=== PATIENT | male | born 1975 | race Hispanic/Latino ===

== ENCOUNTER 2021-04-16 15:20 | Inpatient (IN) | payer BC, SELFPAY ==
[2021-04-16] VITALS (12 sets, daily range): BP systolic 130–198; BP diastolic 81–117; PULSE 85–106; RESP 12–21; TEMP 36–37.1; O2SAT 95–100; BMI 42.0
--- NOTE | 2021-04-16 15:24 | ECG_ITS ---
Measurements Intervals [place] Rate: 80 P: 20 [place]: 150 QRS: 30 QRSD: 102 T: 95 QT: 386 QTc: 446 Interpretive Statements SINUS RHYTHM INFERIOR ST ELEVATION MYOCARDIAL INJURY- ACUTE BASELINE ARTIFACT- I, III, AVR, AVL, AVF, V5-V6 ABNORMAL ECG Electronically Signed On 04-16-2021 16:05:11 CDT by Nitin Andrew D.O.
--- NOTE | 2021-04-16 15:35 | ED.CHESTPAIN ---
HPI - Chest Pain General Chief Complaint: Chest Pain Stated Complaint: cp Time Seen by Provider: 04/16/21 15:27 Source: patient Mode of arrival: ambulatory Limitations: no limitations History of Present Illness HPI narrative: This is a 45 year old male who presents for evaluation of midsternal chest pain. Patient developed pain approximately 45 minutes ago . He states he had just finished walking his dog and he was getting into his car when he developed pain. He denies midsternal chest pressure with associated diaphoresis and nausea. He denies previous history of chest pain or cardiac disease. He reports family history of hypertension but he is unsure of heart disease. He denies abdomi MD complaint: chest pain Related Data Allergies Allergy/AdvReac Type Severity Reaction Status Date / Time No Known Allergies Allergy Unverified 01/17/12 08:28 Review of Systems Review of Systems: All systems reviewed & are unremarkable except as noted in HPI and below PMFSH Past Medical History Medical History Obesity Unspecified place or not applicable Family History Family History Mother Hypertension Social History Social History Smoking packs per day: 0.5 Smoking cigarettes per day: 10.0 Smoking status: Current every day smoker Tobacco type: cigarettes Alcohol intake: current Substance use: current Substance use type: marijuana Exam Const: General: no acute distress and alert Orientation/consciousness: patient oriented x3 Eyes: EOM: EOMs intact bilaterally Resp: Effort & Inspection: normal respiratory effort and no retractions Auscultation: clear to auscultation bilaterally Cardio: Rate: regular rate Rhythm: regular rhythm Heart sounds: no murmurs GI: GI Palp: Yes Soft to palpation, No Tenderness to palpation present (GI) and No Guarding due to palpation present (GI) Auscultation: normal bowel sounds Neuro: General: patient oriented x3, moves all extremities and CN's II-XI intact bilaterally Psych: Mental Status: mental status grossly normal Affect: normal affect Course Reevaluation(s) Reevaluation #1: REpeat EKG shows continued ST elevation inferior. PATient given aspirin 324 mg and heparin. THey are taking him to assistant laboratory director now. Date: 04/16/21 Time: 15:35 Consultations Consultation #1: Patient 's EKG showed TONY inferior to stemi activated. Dr. Mccarthy and cath team are currently at bedside request repeat EKG. Date: 04/16/21 Time: 15:30 Vital Signs Vital signs: Vital Signs Temperature 98.2 F 04/16/21 15:22 Pulse Rate 89 04/16/21 15:22 Respiratory Rate 20 04/16/21 15:22 Blood Pressure 170/116 H 04/16/21 15:22 Pulse Oximetry 100 04/16/21 15:22 Temperature 98.2 F 04/16/21 15:22 Pulse Rate 89 04/16/21 15:22 Respiratory Rate 20 04/16/21 15:22 Blood Pressure 170/116 H 04/16/21 15:22 Pulse Oximetry 100 04/16/21 15:22 MDM - Chest Pain Lab Data Attestation: I reviewed the patient's lab results. Result diagrams: 04/16/21 15:39 04/16/21 15:39 Labs: Lab Results 04/16/21 04/16/21 04/16/21 Range/Units 15:39 15:39 15:39 WBC 11.6 H (4.5-10.0) K/mm3 RBC 5.25 (4.6-6.20) M/mm3 Hgb 16.3 (14.0-18.0) g/dL Hct 49.1 (42.0-52.0) % MCV 93.5 (80-100) fl MCH 31.0 (26-34) pg MCHC 33.2 (32-36) g/dl RDW 12.8 (11.5-14.5) % Plt Count 311 (150-375) k/mm3 MPV 10.1 (7.4-10.4) fl Immature Gran % (Auto) 0.6 H (0-0.5) % Neut % (Auto) 50.9 (45.5-73.1) % Lymph % (Auto) 36.0 (18.3-44.2) % [place] % (Auto) 10.2 H (2.6-8.5) % Eos % (Auto) 1.8 (0-4.4) % Baso % (Auto) 0.5 (0.2-1.2) % Lymph # (Auto) 4.18 H (0.9-3.2) K/mm3 [place] # (Auto) 1.2 H (0.1-0.6) K/mm3 Eos # (Auto) 0.2 (0-0.3) K/mm3 Baso # (Auto) 0.1
--- NOTE | 2021-04-16 15:37 | ECG_ITS ---
Measurements Intervals [place] Rate: 95 P: 42 [place]: 145 QRS: 29 QRSD: 97 T: 97 QT: 352 QTc: 443 Interpretive Statements SINUS RHYTHM INFERIOR ST ELEVATION MYOCARDIAL INFARCT- ACUTE BASELINE ARTIFACT- I, II, III, AVR, AVL, AVF ABNORMAL ECG Electronically Signed On 04-16-2021 16:07:01 CDT by Nitin Andrew D.O.
--- NOTE | 2021-04-16 15:41 | ECG_ITS ---
Measurements Intervals [place] Rate: 92 P: [place]: 0 QRS: -78 QRSD: 154 T: 76 QT: 401 QTc: 496 Interpretive Statements ECTOPIC ATRIAL RHYTHM ATRIAL PREMATURE COMPLEX RIGHT BUNDLE BRANCH BLOCK INFERIOR INFARCT, PROBABLY RECENT ST-T WAVE ABNORMALITY IN ANTEROLATERAL LEADS- CONSIDER ISCHEMIA BASELINE ARTIFACT- I, II, III, AVR, AVL, AVF, V1-V3 ABNORMAL ECG Electronically Signed On 04-16-2021 20:00:02 CDT by Nitin Andrew D.O.
--- NOTE | 2021-04-16 15:46 | PC.NURSE ---
Per Dr. Cosby 4 baby aspirin PO administered at [address] Chandra, 5000 units of heparin IVP administered at 1532. Per Dr. Cosby 2mg of morphine IVP administered at 1533.
[2021-04-16 15:51] LABS: Basophils Absolute Auto 0.1 K/mm3 (0.0-0.1); Basophils Percent Auto 0.5 % (0.2-1.2); Eosinophils Absolute Auto 0.2 K/mm3 (0-0.3); Eosinophils Percent Auto 1.8 % (0-4.4); Hematocrit 49.1 % (42.0-52.0); Hemoglobin 16.3 g/dL (14.0-18.0); Immature Granulocyte Absolute 0.07 K/mm3 (0.00-0.031); Immature Granulocyte Percent A 0.6 % (0-0.5); Lymphocytes Absolute Auto 4.18 K/mm3 (0.9-3.2); Mean Corpuscular HGB Conc 33.2 g/dl (32-36); Mean Corpuscular Volume 93.5 fl (80-100); Mean Platelet Volume 10.1 fl (7.4-10.4); Monocytes Absolute Auto 1.2 K/mm3 (0.1-0.6); Monocytes Percent Auto 10.2 % (2.6-8.5); Neutrophils Absolute Auto 5.9 K/mm3 (1.3-6.7); Neutrophils Percent Auto 50.9 % (45.5-73.1); Platelet Count Result 311 k/mm3 (150-375); Red Blood Count 5.25 M/mm3 (4.6-6.20); Red Cell Distribution Width 12.8 % (11.5-14.5); White Blood Count 11.6 K/mm3 (4.5-10.0)
[2021-04-16 15:58] LABS: INR 0.9; Prothrombin Time 11.6 Seconds (11.1-14.7)
[2021-04-16 15:59] LABS: Partial Thromboplastin Time 27.8 SECONDS (22.3-36.8)
--- NOTE | 2021-04-16 16:04 | PM.IMHP ---
H&P: HPI History of Present Illness Date/Time: Date of service: 04/16/21 16:04 Chief Complaint: Severe pain in my chest that started while driving to cook pickled meat my son Narrative: Patient is a very pleasant 45-year-old gentleman with no significant past history with the exception of obesity, tobacco and marijuana use whom I evaluated at bedside in the emergency department subsequent to STEMI alert from the Emergency Department. Pt reports he was in his usual state of health when approximately 45 minutes prior to presentation he experienced acute onset severe substernal chest heaviness / pressure without radiation associated with diaphoresis, nausea, and mild shortness of breath. Patient states was on his way to cook pickled meat his son from school around 2:45 p.m. when his symptoms began. He rated his pain as 10/10 down to a 7/10 after morphine 2 mg. Initial 12 lead EKG revealed subtle ST elevations in the inferior leads with reciprocal ST depressions laterally. Patient has no prior history of CAD or similar symptoms at any time. He denies exertional dyspnea, chest pain or declining exercise tolerance of late. Denies recent illnesses, sick contacts or COVID exposure. He admits to smoking cigarettes and marijuana earlier today. He denies a prior family history premature atherosclerosis or sudden cardiac . he denies bleeding, head trauma recent illnesses. Review of Systems Review of Systems: All systems reviewed & are unremarkable except as noted in HPI and below Constitutional: Constitutional: Reports as per HPI and Reports no additional constitutional complaints Eyes: Eyes: Reports as per HPI and Reports no additional eye complaints ENT: Reports system reviewed and no additional complaints, except as documented and Reports as per HPI Cardiovascular: Cardiovascular: Reports as per HPI, Reports no additional cardiovascular complaints, Reports chest pain, Reports diaphoresis, Denies leg edema, Denies lightheadedness and Denies palpitations Respiratory: Respiratory: Reports as per HPI, Reports no additional respiratory complaints, Denies hemoptysis and Reports dyspnea Gastrointestinal: Gastrointestinal: Reports as per HPI, Reports no additional gastrointestinal complaints, Denies abdominal pain, Denies melena, Denies hematochezia, Reports nausea and Denies vomiting Genitourinary: Genitourinary: Reports no additional male genitourinary complaints and Reports as per HPI Musculoskeletal: Musculoskeletal: Reports no additional musculoskeletal complaints, Reports as per HPI, Denies back pain and Denies neck pain Integumentary/Breasts: Skin/Breast: Reports system reviewed and no additional complaints, except as docu, Reports as per HPI and Denies unusual bruising Neurologic: Reports system reviewed and no additional complaints, except as documented and Reports as per HPI Psychiatric: Psychiatric: Reports no additional psychiatric complaints, Reports as per HPI and Reports anxiety Endocrine: Endocrine: Reports no additional endocrine complaints and Reports as per HPI Hematologic/Lymphatic: Hematologic/Lymphatic: Reports no additional hematologic/lymphatic complaints, Reports as per HPI, Denies easy bleeding and Denies easy bruising Allergic/Immunologic: Allergic/Immunologic: Reports no additional allergic/immunologic complaints, Reports as per HPI and Denies GI upset with certain foods PMFSH Past Medical History Medical History Obesity Unspecified place or not applicable Family History Family History Mother Hypertension Social History Social History Smoking packs per day: 0.5 Smoking cigarettes per day: 10.0 Smoking status: Current every day smoker Tobacco type: cigarettes Alcohol intake: current Substance use: current Substance use type: marijuana Meds Home Medic
[2021-04-16 16:06] LABS: Alanine Aminotransferase 60 U/L (4-50); Albumin Level 4.8 g/dL (3.5-5.1); Alkaline Phosphatase 122 U/L (38-126); Anion Gap 11 mmol/L (8-16); Aspartate Amino Transferase 37 U/L (17-59); Bilirubin,Total 0.6 mg/dL (0.2-1.3); Blood Urea Nitrogen 15 mg/dL (9-20); Calcium 9.3 mg/dL (8.4-10.2); Carbon Dioxide 29 mmol/L (22-30); Chloride 102 mmol/L (98-107); Cholesterol 264 mg/dL (0-200); Estimated CRCL calculation 94 ml/min; Estimated Glomerular Filt Rate > 60; Glucose 164 mg/dL (65-110); HDL Direct 46 mg/dL; Potassium 3.3 mmol/L (3.4-5.0); Sodium 142 mmol/L (137-145); Triglycerides 296 mg/dL (<150)
[2021-04-16 16:17] LABS: LDL Cholesterol Direct 183 mg/dL
[2021-04-16 16:18] LABS: Troponin I < 0.012 ng/mL (0.000-0.034)
--- NOTE | 2021-04-16 16:42 | WPDCARDPROC ---
Cardiac Cath Procedure Note Date of procedure:: 04/16/21 Performing physician:: Neto Koehler MD Procedure Procedure note:: CARDIAC CATHETERIZATION AND PERCUTANEOUS CORONARY INTERVENTION REPORT DATE OF PROCEDURE: 04/16/2021 INDICATION FOR PROCEDURE: Acute coronary syndrome/ inferior ST-elevation myocardial infarction BRIEF CLINICAL HISTORY: 45-year-old male with obesity, tobacco abuse; no known prior cardiac history. Patient presented to [facility] -04/16/2021 with approximately 90 minute history of chest pain associated with shortness of breath. His EKG showed sinus rhythm, ST-elevation in the inferior leads. Cardiac catheterization lab was activated for primary PCI. Patient received aspirin, and a bolus of 5000 units of heparin prior to arrival to the photonic laboratory technician. PROCEDURES PERFORMED: 1. Emergent left heart catheterization- Selective left and right coronary angiogram; left ventriculogram and hemodynamic assessment 2. Primary Percutaneous coronary intervention- balloon angioplasty and stenting of totally occluded mid right coronary artery using a 4.5 x 26 mm Medtronic resolute beto Zotarolimus drug-eluting stent (ZES) with denominational of flow. 3. Selective right common femoral angiogram 4. Moderate sedation-CPT code 22510 MODERATE SEDATION: Midazolam 1 mg; fentanyl 25 mcg. Start time 1603 , Stop time 1634 ; Total [id number] time 31 minutes; Dk Lewis RN was trained observer for moderate sedation. ACCESS SITE: Right common femoral artery PROCEDURE NOTE: Patient was emergently brought to catheterization lab and prepped and draped in a usual sterile manner. After local anesthesia with lidocaine, right common femoral artery access was taken with micropuncture needle followed by insertion of a 6 [place] sheath. Selective left and right coronary angiogram was performed using 5 [place] JL4 diagnostic and JR4 guide catheters respectively. Orthogonal views were taken. After completion of PCI, a 5 [place] pigtail catheter was advanced in the LV cavity and was flushed with normal saline. LV pressure measurement was performed. After this, left ventriculogram was performed. The catheter was flushed again, and gradient across the aortic valve was measured on the pullback of the catheter. The angiographic findings and details of PCI I are discussed below. FINDINGS: LEFT MAIN CORONARY: The left main coronary artery is a large caliber, very short vessel, no angiographic significant focal stenosis seen. The vessel bifurcates into tortuous LAD left circumflex branch. There was somewhat selective engagement of the LCX during left coronary angiogram. LEFT ANTERIOR DESCENDING ARTERY: The LAD is a medium to large caliber vessel in the proximal segment, medium caliber in the mid segment, and tapers distally. The vessel tortuous without significant focal stenosis in the LAD or its medium-sized diagonal branch. LEFT CIRCUMFLEX ARTERY: the left circumflex artery is a large caliber, very tortuous vessel, gives rise to very tortuous large caliber OM1 branch and medium caliber OM2 branch without significant focal stenosis. RIGHT CORONARY ARTERY: RCA is a large caliber, very tortuous, dominant vessel. 100% thrombotic occlusion is seen in the mid segment -infarct related vessel. There is mild 20-30% eccentric stenosis in the proximal segment. After denominational of flow, angiogram shows medium size PDA and the PLV branches , without significant focal stenosis. LEFT VENTRICULOGRAM: Preserved overall LV systolic function, ejection fraction more than 70%. Ventricular ectopy was seen during left ventriculogram. LVEDP elevated at 24 mmHg. HEMODYNAMIC ASSESSMENT: Opening pressure 161/122 mmHg , closing pressure 146/87 mmHg , LVEDP 24 mmHg; no significant gradient across aortic valve on the pullback of pigtail catheter. RIGHT COMMON FEMORAL ARTERY: Patent INTERVENTION REPORT: coronary angiogram showed 100% thrombotic occlusion in the
--- NOTE | 2021-04-16 17:46 | ADMGEN ---
This patient, Joseph Marie, was admitted to Intensive Care Unit-3. Patient/family oriented to hospital policies and general routines including ID bracelet, bed and alarms, visiting hours, pain management, procedures, bathroom and other care routines, personal items, smoking policy, room service/diet, and visiting hours. Information on how to activate the Rapid Response Team has been discussed. Patient/Family are encouraged to report perceived risks to care and to ask questions if they do not understand what they are told or what they should do.
[2021-04-16] MEDS: SODIUM CHLORIDE 0.9% IV 1,000 ML 125 ML IV CONT (17:48)
[2021-04-16] MEDS: hydrALAZINE HCL 20 MG/ML VIAL 10 MG IV PUSH (18:31)
[2021-04-16] MEDS: LOSARTAN POTASSIUM 25 MG TABLET PO (19:56)
[2021-04-16] MEDS: ATORVASTATIN 40 MG TABLET 80 MG PO (19:56)
[2021-04-16] MEDS: ONDANSETRON INJ 4 MG/2 ML VIAL IV PUSH (21:25)
[2021-04-16] MEDS: METOPROLOL TARTRATE 25 MG TABLET PO (22:27)
[2021-04-16] MEDS: TICAGRELOR 90 MG TABLET PO (22:27)
[2021-04-16] MEDS: LABETALOL HCL INJ 100 MG/20 ML VIAL 20 MG IV PUSH (23:34)
[2021-04-17] VITALS (12 sets, daily range): BP systolic 140–165; BP diastolic 72–104; PULSE 71–109; RESP 16–20; TEMP 36.8–37.1; O2SAT 94–99
--- NOTE | 2021-04-17 | ECHO_ITS ---
Patient Info Name: Joseph Marie Age: 45 years : 1975 Gender: Male Ht: 70 in Wt: 294 lbs BSA: 2.63 m2 HR: 78 bpm BP: 147 / 103 mmHg Heart Rhythm: Sinus Rhythm Technical Quality: Fair Exam Date: 04/17/2021 2:02 PM Exam Location: [facility] Patient Status: Inpatient Admit Date: 04/16/2021 Staff Ordering Physician: Dean Cota MD Car Filler: Paula Quesada RDCS Attending Provider: eNto Koehler MD Exam Type: CA echo doppler color flow Study Info Indications - STEMI Complete two-dimensional, color flow and Doppler transthoracic echocardiogram is performed. Summary 1. Technically difficult study with limited views. Regional wall motion assessment limited due to poor endomyocardial border definition in several views. 2. Left ventricular chamber dimension is mildly enlarged. 3. Left ventricular systolic function is normal, estimated at 60-65%. 4. There is moderately increased left ventricular wall thickness. 5. There is trace tricuspid valve regurgitation. 6. Unable to estimate PA systolic pressure due to poor spectral resolution of tricuspid regurgitant jet velocity. IVC not well visualized. 7. The aortic root size at the sinus of Valsalva is mildly dilated at 4.[address] chest if clinically indicated. 8. Possible moderate to large localized pericardial effusion posteriorly located without tamponade physiology. Left Ventricle Left ventricular chamber dimension is mildly enlarged. Left ventricular systolic function is normal, estimated at 60-65%. There is moderately increased left ventricular wall thickness. The left ventricular diastolic function is grade I diastolic dysfunction. Right Ventricle Right ventricular chamber dimension is normal. Right ventricular systolic function is normal. Left Atria Left atrial chamber dimension is normal. Right Atria Right atrial chamber dimension is normal. Aortic Valve The aortic valve is not well visualized. There is no aortic valve stenosis. There is no aortic valve regurgitation. Pulmonic Valve The pulmonic valve is not well visualized. Mitral Valve The mitral valve has normal leaflets. There is trace mitral valve regurgitation. Tricuspid Valve The tricuspid valve leaflets are not well visualized. There is trace tricuspid valve regurgitation. Unable to estimate PA systolic pressure due to poor spectral resolution of tricuspid regurgitant jet velocity. IVC not well visualized. Pericardium/Pleural The pericardium appears epicardial fat pad. Possible moderate to large localized pericardial effusion posteriorly located without tamponade physiology. Aorta The aortic root size at the sinus of Valsalva is mildly dilated at 4.[address] chest if clinically indicated. Left Ventricular Outflow Tract Name Value Normal LVOT 2D LVOT Diameter 2.0 cm LVOT Doppler LVOT Peak Gradient 4 mmHg LVOT Mean Gradient 2 mmHg LVOT VTI 19 cm LVOT VTI/AV VTI Ratio 1.0 LVOT Stroke Volume 61 ml
--- NOTE | 2021-04-17 00:56 | ECG_ITS ---
Measurements Intervals [place] Rate: 84 P: 55 [place]: 148 QRS: -19 QRSD: 86 T: 5 QT: 369 QTc: 438 Interpretive Statements SINUS RHYTHM WITH SINUS ARRHYTHMIA DELAYED PRECORDIAL R/S TRANSITION INFERIOR INFARCT, AGE INDETERMINATE BASELINE ARTIFACT- V3 ABNORMAL ECG Electronically Signed On 04-17-2021 8:58:31 CDT by Nitin Andrew D.O.
[2021-04-17] MEDS: carvediloL 12.5 MG TABLET PO ×3 (01:37→20:15)
[2021-04-17] MEDS: hydrALAZINE HCL 20 MG/ML VIAL 10 MG IV PUSH (03:05)
[2021-04-17] MEDS: ONDANSETRON INJ 4 MG/2 ML VIAL IV PUSH ×3 (03:54→12:42)
[2021-04-17 07:49] LABS: Hemoglobin 15.2 g/dL (14.0-18.0); Mean Corpuscular HGB Conc 34.5 g/dl (32-36); Mean Corpuscular Hemoglobin 31.1 pg (26-34); Mean Platelet Volume 10.1 fl (7.4-10.4); Platelet Count Result 303 k/mm3 (150-375); Red Blood Count 4.89 M/mm3 (4.6-6.20); Red Cell Distribution Width 12.7 % (11.5-14.5); White Blood Count 15.3 K/mm3 (4.5-10.0)
[2021-04-17] MEDS: ASPIRIN 81 MG ENTERIC TABLET PO (08:00)
[2021-04-17] MEDS: TICAGRELOR 90 MG TABLET PO ×2 (08:00→20:15)
[2021-04-17] MEDS: LOSARTAN POTASSIUM 25 MG TABLET PO (08:00)
[2021-04-17 08:17] LABS: Anion Gap 7 mmol/L (8-16); Blood Urea Nitrogen 12 mg/dL (9-20); Calcium 9.3 mg/dL (8.4-10.2); Carbon Dioxide 28 mmol/L (22-30); Chloride 100 mmol/L (98-107); Estimated CRCL calculation 116 ml/min; Estimated Glomerular Filt Rate > 60; Glucose 167 mg/dL (65-110); Potassium 4.2 mmol/L (3.4-5.0); Sodium 135 mmol/L (137-145)
[2021-04-17] MEDS: HYDROcodone/acetaminophen (*CRX) 5-325 MG TABLET 1 TAB PO (09:03)
--- NOTE | 2021-04-17 09:48 | WPDCNINT ---
Assessment and Plan Assessment and plan (1) STEMI (ST elevation myocardial infarction): Code(s): I21.3 - ST elevation (STEMI) myocardial infarction of unspecified site Status: Acute Assessment and Plan: Inferior ST segment elevation [place] status post PCI balloon angioplasty and stenting of totally occluded mid right coronary artery using a 4.5 x 26 mm Medtronic resolute beto Zotarolimus drug-eluting stent (ZES) with nondenominational of flow. Continue telemetry monitoring Continue aspirin, Lipitor, Coreg, losartan and Brilinta EKG done this morning reviewed Echocardiogram ordered and pending (2) HTN (hypertension): Code(s): I10 - Essential (primary) hypertension Status: Acute Assessment and Plan: Patient does not have documented history of hypertension but his blood pressure is elevated He has been started on Coreg and losartan Will up titrate depending on response (3) Tobacco abuse: Code(s): Z72.0 - Tobacco use Status: Acute Assessment and Plan: I counseled and encouraged patient to quit smoking (4) Obstructive sleep apnea: Code(s): G47.33 - Obstructive sleep apnea (adult) (pediatric) Status: Acute Assessment and Plan: I suspect patient has sleep apnea from his history and I encouraged him to seek sleep study testing as an outpatient (5) Nausea: Code(s): R11.0 - Nausea Status: Acute Assessment and Plan: P.r.n. Zofran (6) Neck pain: Code(s): M54.2 - Cervicalgia Status: Acute Assessment and Plan: Chronic musculoskeletal P.r.n. [place] Additional Plan DVT prophylaxis -SCDs while in bed. 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 Patient developed pain approximately 45 minutes prior to presentation, it was midsternal in location and was as stated with sweating and nausea. No radiation, 10/10 severity, no aggravating or relieving factors until he reached hospital and had PCI procedure done. In ED patient was diagnosed with ST segment elevation MO and Cardiology was consulted. Patient underwent PCI and stent placement of his RCA. Procedure patient was admitted to ICU for further evaluation and monitoring At this time patient denies any chest pain shortness of breath or cough. He states that he does have some nausea off and on but no vomiting. He does feel that he would like to eat food this morning. He denies any other complaint at this time. Review of systems is positive for neck pain which is chronic and is worse at this time as per patient due to laying in bed in flat position.. He also states that he has difficulty breathing when he lays flat on his back and often wakes up gasping for air. He also admits to snoring. All other systems were reviewed and were negative Review of Systems Review of Systems: All systems reviewed & are unremarkable except as noted in HPI and below (HPI) [facility] Past Medical History Medical History Obesity Unspecified place or not applicable Family History Family History Mother Hypertension Social History Social History Smoking packs per day: 0.5 Smoking cigarettes per day: 10.0 Smoking status: Never smoker Tobacco type: cigarettes Alcohol intake: never Substance use: current Substance use type: marijuana Spiritual care concerns: No Meds Home Medications and Allergies Home Medications
--- NOTE | 2021-04-17 11:18 | PM.PNCARD ---
Progress Note: A&P Assessment and Plan (1) STEMI (ST elevation myocardial infarction): Code(s): I21.3 - ST elevation (STEMI) myocardial infarction of unspecified site Status: Acute Assessment and Plan: -Acute inferior ST-elevation IA with reciprocal ST depressions persistent chest pain consistent with ACS/ STEMI. -Emergent coronary angiography with total occlusion mid RCA status post 4.5 x 26 mm Medtronic resolute beto Zotarolimus drug-eluting stent (ZES) - continue ASA 81 mg and Brilinta 90 mg b.i.d. without interruption. Monitor for bleeding. - DVT prophylaxis. Lipid panel LDL 183. Atorvastatin 80 mg daily will be initiated. (2) HTN (hypertension): Code(s): I10 - Essential (primary) hypertension Status: Acute Assessment and Plan: No prior diagnosis yet suspect to be more chronic issue. Very elevated overnight, currently improved with medical therapy, but remains elevated. Suspect N/V related to med therapy post angiography. Increase losartan to 50 mg daily if BP poorly controlled. 2D echocardiogram pending. (3) NSVT (nonsustained ventricular tachycardia): Code(s): I47.2 - Ventricular tachycardia Status: Acute Assessment and Plan: Two 7 beat runs of nonsustained VT within 1st 24 hours post IA noted, marketing director assisted living hours today without significant recurrence. Occasional PVCs. Continue carvedilol and telemetry. (4) Dyslipidemia: Code(s): E78.5 - Hyperlipidemia, unspecified Status: Acute Assessment and Plan: LDL quite elevated 183, goal less than 70. Atorvastatin 80 mg at bedtime. (5) Tobacco abuse: Code(s): Z72.0 - Tobacco use Status: Acute Assessment and Plan: Immediate and absolute smoking cessation counseling performed. Patient must remain abstinent immediately for marijuana use. Counseled extensively in this regard. Patient verbalized understanding and states he understands the importance and will do so. (6) Obesity: Code(s): E66.9 - Obesity, unspecified Status: Acute Assessment and Plan: Lifestyle modification counseling. Discussed at length. Patient very interested in making multiple changes in his life to reduce risk moving forward. Subjective Date/time seen: Date of service: 04/17/21 11:18 Follow-up for inferior ST-elevation IA status post emergent angiography BP quite elevated overnight, Received IV hydralazine, losartan and carvedilol added. no chest pain or shortness of breath. Patient states he feels fine with the exception of nausea and emesis this morning. He received Zofran which has helped some. he complains of neck and back pain which is chronic lying in the bed improved sitting up. Review of Systems Review of Systems: All systems reviewed & are unremarkable except as noted in HPI and below Constitutional: Constitutional: Reports as per HPI and Reports no additional constitutional complaints Eyes: Eyes: Reports as per HPI and Reports no additional eye complaints ENT: Reports system reviewed and no additional complaints, except as documented, Reports as per HPI and Denies neck pain Cardiovascular: Cardiovascular: Reports as per HPI, Reports no additional cardiovascular complaints, Denies chest pain, Denies diaphoresis, Denies leg edema, Denies lightheadedness, Denies palpitations and Reports dyspnea Respiratory: Respiratory: Reports as per HPI, Reports no additional respiratory complaints, Denies hemoptysis and Denies dyspnea Gastrointestinal: Gastrointestinal: Reports as per HPI, Reports no additional gastrointestinal complaints, Denies abdominal pain, Denies melena, Denies hematochezia, Reports nausea and Reports vomiting Genitourinary: Genitourinary: Reports no additional male genitourinary complaints and Reports as per HPI Musculoskeletal: Musculoskeletal: Reports no additional musculoskeletal complaints, Reports as per HPI, Denies back pain and Denies ne
--- NOTE | 2021-04-17 16:06 | PC.NURSE ---
Patient transferred to [facility], report given to Flory FREDERICK
--- NOTE | 2021-04-17 16:31 | ADMGEN ---
This patient, Joseph Marie, was admitted to [facility]. Patientnoriented to hospital policies and general routines including ID bracelet, bed and alarms, visiting hours, pain management, procedures, bathroom and other care routines, personal items, smoking policy, room service/diet, and visiting hours. Information on how to activate the Rapid Response Team has been discussed. Patient is encouraged to report perceived risks to care and to ask questions if they do not understand what they are told or what they should do.
[2021-04-17] MEDS: ATORVASTATIN 40 MG TABLET 80 MG PO (20:15)
--- NOTE | 2021-04-17 22:08 | PC.NURSE ---
Patient report received from OTONIEL Fragoso and care of patient assumed. All questions answered.
--- NOTE | 2021-04-17 22:34 | PC.NURSE ---
Patient appears to be sleeping at this time. Eyes closed with regular, non-labored breathing. NAD noted. NSR on the monitor. Call-light within reach. Will continue to monitor.
[2021-04-18] VITALS (9 sets, daily range): BP systolic 132–146; BP diastolic 85–101; PULSE 83–106; RESP 14–20; TEMP 35.9–36.6; O2SAT 96–98
--- NOTE | 2021-04-18 03:29 | PC.NURSE ---
Patient resting quietly in bed with eyes closed. Appears to be asleep. Respirations regular and non-labored. VSS. Call-light within reach. Will continue to monitor.
--- NOTE | 2021-04-18 06:30 | PC.NURSE ---
Pt resting comfortably in bed. Appears to be asleep. Eyes closed and respirations regular and non-labored. VSS. call-light within reach.
--- NOTE | 2021-04-18 07:20 | PC.NURSE ---
Patient report given to OTONIEL Wills. All questions answered and care of patient transferred.
[2021-04-18] MEDS: ASPIRIN 81 MG ENTERIC TABLET PO (09:41)
[2021-04-18] MEDS: TICAGRELOR 90 MG TABLET PO (09:42)
[2021-04-18] MEDS: LOSARTAN POTASSIUM 25 MG TABLET PO (09:42)
[2021-04-18] MEDS: carvediloL 12.5 MG TABLET PO (09:42)
--- NOTE | 2021-04-18 11:20 | PC.NURSE ---
SYED CHEUNG LINE MAINTAINER HERE TO SEE PT.
--- NOTE | 2021-04-18 11:29 | PM.DS ---
DS: Admitting Diagnosis Discharge Date 04/18/2021 Admitting Diagnosis chest pain DS: Discharge Diagnosis Discharge Diagnosis (1) STEMI (ST elevation myocardial infarction): Code(s): I21.3 - ST elevation (STEMI) myocardial infarction of unspecified site Status: Acute Assessment and Plan: - Acute inferior ST-elevation ID with reciprocal ST depressions persistent chest pain consistent with ACS/ STEMI. - Emergent coronary angiography with total occlusion mid RCA status post 4.5 x 26 mm Medtronic resolute beto Zotarolimus drug-eluting stent (ZES) - continue ASA 81 mg and Brilinta 90 mg b.i.d. without interruption. Monitor for bleeding - Lipid panel LDL 183. On Atorvastatin 80 mg daily. (2) HTN (hypertension): Code(s): I10 - Essential (primary) hypertension Status: Acute Assessment and Plan: No prior diagnosis yet suspect to be more chronic issue. Reasonably controlled today. Continue losartan, carvedilol. (3) NSVT (nonsustained ventricular tachycardia): Code(s): I47.2 - Ventricular tachycardia Status: Acute Assessment and Plan: Two 7 beat runs of nonsustained VT within 1st 24 hours post ID noted, digital imager hours today without significant recurrence. Occasional PVCs. No VT noted on telemetry overnight or this morning. Currently in sinus rhythm. (4) Dyslipidemia: Code(s): E78.5 - Hyperlipidemia, unspecified Status: Acute Assessment and Plan: LDL quite elevated 183, goal less than 70. Atorvastatin 80 mg at bedtime. (5) Tobacco abuse: Code(s): Z72.0 - Tobacco use Status: Acute Assessment and Plan: Immediate and absolute smoking cessation counseling performed. Reviewed importance of abstaining from all tobacco products. Patient expresses that he is very committed to maintaining abstinence from smoking at this time. (6) Obesity: Code(s): E66.9 - Obesity, unspecified Status: Acute Assessment and Plan: Lifestyle modification counseling. Discussed specifics of heart healthy diet. Discussed goals for aerobic exercise. DS: Summary Hospital Course Hospital Course: Patient presented to the emergency department with complaints of severe substernal chest heaviness, diaphoresis, nausea, mild shortness of breath. Initial 12 lead EKG revealed subtle ST elevations in the inferior leads with reciprocal ST depressions laterally. Patient was taken emergently to the cardiac catheterization lab where he was found to have 100% thrombotic occlusion in the mid RCA. This lesion was addressed with balloon angioplasty and placement of an beto XES. These interventions produced a good angiographic result. He did not have any other significant obstructive disease in the left coronary system. Overall LV systolic function was preserved with an EF more than 70%. He was initiated on dual anti-platelet therapy with aspirin and Brilinta. He was also initiated on beta-samuel therapy, high-intensity statin, losartan. He did not experience any significant postprocedural complications and is stable and appropriate for discharge home today. Time spent discussing smoking cessation with patient: 3 to 10 minutes Status at Discharge Functional status at discharge: independent ambulation Time Spent with Patient Time attestation: Total time spent providing and/or coordinating discharge services: 39 minutes Time spent: Greater than 30 minutes Exam Const: General: comfortable and no acute distress HENMT: Head: normal to inspection Eyes: General: appearance normal, both eyes and all related structures Pupils: Equal, round and reactive pupils present Neck: Neck: supple and no JVD Resp: Effort & Inspection: normal respiratory effort Auscultation: clear to auscultation bilaterally and diminished lung sounds (Bases) bilateral Cardio: Rate: regular rate Rhythm: regular rhythm Heart sounds: no murmurs GI: GI Palp: Yes Soft to palpation
--- NOTE | 2021-04-18 16:20 | PC.NURSE ---
DISCHARGE INSTRUCTIONS HAVE BEEN GIVEN AND REVIEWED W/ PT. ALL QUESTIONS ANSWERED. VOICED UNDERSTANDING OF ALL. R. GROIN SITE BANDAID C/D/I. NO CHANGE IN SITE. R. PEDAL PULSE STRONG. SENSATION AND MOVEMENT R. FOOT WNL. DISCHARGED HOME, OUT VIA WC TO FAMILY'S WAITING CAR, WITH ALL PERSONAL BELONGINGS, DISCHARGE PACKET, STENT CARD. STEADY GAIT. VOICES NO C/O. NO DISTRESS NOTED.
== END 2021-04-18 16:20 | disposition home or self-care (01) | DRG 174 ==
LOC: ANHED 15:37 → ANHICU 17:37 → ANHCPC 04-18 11:29 → ANHICU 04-23 13:18
PROVIDERS: Internal Medicine Cardiovascular Disease; Admitting Provider Internal Medicine Cardiovascular Disease; Emergency Provider General Practice; Visit Provider Specialist
PROC: 4A023N7 Measurement of Cardiac Sampling and Pressure, Left Heart, Percutaneous Approach (ICD-10-PCS; CPT 93452; principal; 2021-04-16 15:40)
PROC: 027034Z Dilation of Coronary Artery, One Artery with Drug-eluting Intraluminal Device, Percutaneous Approach (ICD-10-PCS; 2021-04-16 15:40)
PROC: 027034Z Dilation of Coronary Artery, One Artery with Drug-eluting Intraluminal Device, Percutaneous Approach (ICD-10-PCS; 2021-04-16 15:40)
DX: I21.3 ST elevation (STEMI) myocardial infarction of unspecified site (principal); I47.2 Ventricular tachycardia; I10 Essential (primary) hypertension; E78.5 Hyperlipidemia, unspecified; F17.210 Nicotine dependence, cigarettes, uncomplicated; E66.9 Obesity, unspecified; Z68.41 Body mass index [BMI] 40.0-44.9, adult; G47.33 Obstructive sleep apnea (adult) (pediatric)
CPT/HCPCS: 36415; 80048; 80053; 80061; 84484; 85025; 85027; 85610; 85730; 86850; 86900; 86901; 93005; 93306; 93458; 99285; A9270; C1725; C1760; C1769; C1874; C1887; C1894; C9606; G0269; J0360; J0583; J1644; J2250; J2270; J2405; J3010; J7030; J7040

== ENCOUNTER 2021-06-09 10:33 | Outpatient (CLI) | payer BC, SELFPAY ==
[2021-06-09 11:16] LABS: Alanine Aminotransferase 81 U/L (4-50); Albumin Level 4.8 g/dL (3.5-5.1); Alkaline Phosphatase 134 U/L (38-126); Anion Gap 9 mmol/L (8-16); Aspartate Amino Transferase 49 U/L (17-59); Blood Urea Nitrogen 16 mg/dL (9-20); Calcium 9.9 mg/dL (8.4-10.2); Carbon Dioxide 28 mmol/L (22-30); Chloride 102 mmol/L (98-107); Cholesterol 115 mg/dL (0-200); Estimated Glomerular Filt Rate > 60; Glucose 108 mg/dL (65-110); HDL Direct 36 mg/dL; Potassium 4.3 mmol/L (3.4-5.0); Sodium 139 mmol/L (137-145); Triglycerides 125 mg/dL (<150)
[2021-06-09 11:26] LABS: Hemoglobin A1C 5.6 % (<5.7)
[2021-06-09 11:28] LABS: LDL Cholesterol Direct 49 mg/dL
[2021-06-09 11:34] LABS: Vitamin D 25 Hydroxy 26.7 ng/mL
[2021-06-09 11:48] LABS: Prostate Specific Antigen 0.3 ng/mL (< OR = 4.0)
[2021-06-09 11:58] LABS: Microalbumin Urine Random 28.7 mg/L (0-16.7)
[2021-06-09 12:26] LABS: Creatinine Urine 365.7 mg/dL; MALB Creatinine Ratio 7.8 mg/g (0-30)
== END 2021-06-09 10:34 | disposition home or self-care (01) ==
LOC: ANHLAB 10:35
PROVIDERS: PCP Internal Medicine; Visit Provider Internal Medicine
DX: E55.9 Vitamin D deficiency, unspecified (principal); E66.01 Morbid (severe) obesity due to excess calories; I10 Essential (primary) hypertension; Z68.41 Body mass index [BMI] 40.0-44.9, adult; R73.01 Impaired fasting glucose; E78.2 Mixed hyperlipidemia; Z12.5 Encounter for screening for malignant neoplasm of prostate
CPT/HCPCS: 36415; 80053; 80061; 82043; 82306; 83036; 84153; 84443; G0103

== ENCOUNTER 2021-07-21 11:00 | Outpatient (RCR) | payer BC, SELFPAY ==
--- NOTE | 2021-06-18 11:27 | PCCPR ---
absent-kid is sick and has to take him to the doctor.
--- NOTE | 2021-06-26 08:29 | PCCPR ---
Absence: Joseph called and said that he had a sore throat, so he did not think that it would be a good idea to come in. He is going to call his doctor today.
--- NOTE | 2021-07-02 15:02 | PCCPR ---
Addendum entered by Anila Young RN 07/21/21 07:52: SANDOVAL for Joseph explained we need to hear from him today or will need to dc him. We have left several messages and he has not responded. Original Note: Absent the past 2 sessions due to illness. Hopes to return tomorrow ().
== END 2021-07-21 18:27 | disposition home or self-care (01) ==
LOC: ANHCPREHAB 11:00
PROVIDERS: PCP Internal Medicine; Visit Provider Nurse Practitioner
DX: Z95.5 Presence of coronary angioplasty implant and graft (principal); I25.2 Old myocardial infarction
CPT/HCPCS: 93798

== ENCOUNTER 2022-01-14 12:03 | Inpatient (IN) | payer BC, SELFPAY ==
[2022-01-14] VITALS (21 sets, daily range): BP systolic 116–162; BP diastolic 75–121; PULSE 74–95; RESP 12–25; TEMP 36.5–36.8; O2SAT 96–100; BMI 38.4
--- NOTE | ~2022-01-14 | CT_ITS ---
EXAMINATION: CT brain wo con INDICATION: Numbness, hypertension COMPARISON: None TECHNIQUE: Standard unenhanced head CT. The dose-length product (DLP) was 605.33 mGy-cm. The mA was a djusted according to patient size. Iterative reconstruction technique was employed. FINDINGS: There is no intracranial hemorrhage, acute infarction, or abnormal mass lesion. The ventric les are normal. There is no abnormal mass effect or midline shift. The moulton-white matter differentiat ion is normal. The basal cisterns are patent. The orbits are normal. The paranasal sinuses, mastoids and calvarium are normal. IMPRESSION: 1. No acute intracranial abnormality. Reviewed, dictated and finalized at location A.
--- NOTE | ~2022-01-14 | US_ITS ---
EXAMINATION: US abdomen limited DATE: 01/18/2022 10:08 INDICATION: Elevated LFTs. TECHNIQUE: Multiple grayscale and Doppler ultrasound images of limited portions of the abdomen were o btained. COMPARISON: CT 01/17/2012. FINDINGS: Pancreas is obscured. Borderline enlargement of the liver, with diffuse echogenicity of the liver parenchyma. No surface nodularity. Normal hepatopetal flow in the main portal vein. Bladder wa ll thickening to 5 mm. 8 mm gallbladder polyp. The normal common bile duct measures 5 mm. There was n o sonographic Negron sign. IMPRESSION: 1. Increased liver echogenicity as can be seen with steatosis, fibrosis, or hepatitis. 2. Gallbladder wall thickening, nonspecific in the setting of chronic liver disease. 3. 8 mm gallbladder polyp, recommend: Bilateral ultrasound follow-up in 1 year to evaluate for interv al growth. Reviewed, dictated and finalized at location K. IMPRESSION: 1. Increased liver echogenicity as can be seen with steatosis, fibrosis, or hep atitis. 2. Gallbladder wall thickening, nonspecific in the setting of chronic liver dis ease. 3. 8 mm gallbladder polyp, recommend: Bilateral ultrasound follow-up in 1 year to evaluate for interval growth.
--- NOTE | ~2022-01-14 | CT_ITS ---
EXAMINATION: CT lumbar spine wo con DATE: 01/14/2022 13:08 INDICATION: Lower extremity weakness. TECHNIQUE: Computed tomography (CT) of the lumbar spine was performed without intravenous contrast. A utomated exposure control and iterative reconstruction technique were employed. The dose-length produ ct was 1414.67 mGy-cm. COMPARISON: None FINDINGS: There is a 4 mm stone in left kidney. Bone alignment is normal.. There is mild chronic ante rior wedging of T11-L1 vertebral bodies. Intervertebral disc heights are normal. The following disc l evels are specifically discussed: L1-L2: The disc does not extend beyond the endplate margin. There is mild bilateral facet joint osteo arthritis. There is no neural foraminal stenosis. There is no central canal stenosis. L2-L3: The disc does not extend beyond the endplate margin. There is mild bilateral facet joint osteo arthritis. There is no neural foraminal stenosis. There is no central canal stenosis. L3-L4: The disc does not extend beyond the endplate margin. There is mild bilateral facet joint osteo arthritis. There is no neural foraminal stenosis. There is no central canal stenosis. L4-L5: The disc is bulging. There is mild bilateral facet joint osteoarthritis. There is mild left ne ural foraminal stenosis. There is no central canal stenosis. L5-S1: There is a central protrusion. There is mild bilateral facet joint osteoarthritis. There is no neural foraminal stenosis. There is mild central canal stenosis. IMPRESSION: 1. Mild lumbar spondylosis. Reviewed, dictated and finalized at location A. IMPRESSION: 1. Mild lumbar spondylosis.
--- NOTE | ~2022-01-14 | XR_ITS ---
EXAMINATION: XR chest 1V portable INDICATION: Weakness TECHNIQUE: Portable AP chest at 1233 hours COMPARISON: None available FINDINGS: The lungs are free of acute opacities. There is no pleural effusion or pneumothorax. The ca rdiomediastinal silhouette is normal. IMPRESSION: 1. No acute cardiopulmonary abnormality. Reviewed, dictated and finalized at location A.
--- NOTE | 2022-01-14 12:13 | ECG_ITS ---
Measurements Intervals [place] Rate: 85 P: 1 NM: 148 QRS: -12 QRSD: 79 T: 12 QT: 351 QTc: 419 Interpretive Statements SINUS RHYTHM LOW-VOLTAGE QRS IN LIMB LEADS CANNOT RULE OUT INFERIOR INFARCT, AGE INDETERMINATE ABNORMAL ECG COMPARED TO ECG 04/17/2021 00:55:06 NO SIGNIFICANT CHANGES Electronically Signed On 01-14-2022 16:45:32 CDT by Ludwin Mccarthy M.D.
--- NOTE | 2022-01-14 12:15 | ED.WEAKNESS ---
HPI - Weakness General Chief complaint: Weakness Stated complaint: b/l weakness Time Seen by Provider: 01/14/22 12:04 Source: RN notes reviewed History of Present Illness HPI Narrative: Patient presents emergency department from home for leg weakness. Patient states he was walking to the [facility] when suddenly his bilateral legs became more weak and he fell he states that that happened approximately 20 minutes prior to arrival states he sustained no injury from the fall other than a mild abrasion over his right knee states that following the fall he has continued to have feelings of weakness in his bilateral legs like his muscles are weak he states a little worse on the right than the left but both are weak he denies any numbness or tingling he denies any feelings of dizziness, vision changes, chest pain, shortness of breath, abdominal pain nausea vomiting or any other symptoms. Patient states that he has been having weakness in his legs over the past 2 weeks that has gradually gotten worse he states that this is the first time that he has fallen Related Data Allergies Allergy/AdvReac Type Severity Reaction Status Date / Time No Known Allergies Allergy Verified 09/25/21 13:50 Review of Systems Review of Systems: Gen.: Denies fevers or chills Eyes: Denies eye pain or visual change ENT: Denies congestion Respiratory: Denies shortness of breath or cough CV: Denies chest pain or palpitations GI: Denies abdominal pain nausea, emesis or diarrhea Musculoskeletal: Denies back pain or muscle pain Neuro: Denies numbness, tingling, weakness or focal weakness Skin: Denies rash Except as documented, all other systems reviewed and negative [facility] Past Medical History Medical History Obesity Unspecified place or not applicable Family History Family History Mother Hypertension Social History Social History Smoking packs per day: 1 Smoking cigarettes per day: 20.0 Years smoked: 26 Smoking pack-years: 26.00 Smoking status: Former smoker Tobacco type: cigarettes Smoking end date: 04/16/21 Alcohol intake: never Substance use: former Substance use type: marijuana Last use: Spiritual care concerns: No Exam Narrative: APPEARANCE: No acute distress, nontoxic, resting in bed HEENT: Normocephalic, atraumatic, OMM, TMs clear bilaterally EYES: PERRL, EOMI NECK: Supple, nontender, full range of motion without pain, no meningismus RESPIRATORY: No respiratory distress, clear to auscultation bilaterally with no rhonchi wheezing or rales CARDIOVASCULAR: RRR s murmur ABDOMINAL: Soft, nontender, nondistended MUSCULOSKELETAL: Moves all extremities. No clubbing, cyanosis or edema. NEURO: A and O ?3, following commands, speech normal, cranial nerves II through XII grossly intact, muscle strength 5 out of 5 in bilateral upper extremities, muscle strength 3 out of 5 in the right lower extremity and 4 out of 5 in the left lower extremity, no pronator drift equal pinprick sensation in the bilateral lower extremities SKIN:: Warm, dry. Normal Color PSYCHIATRIC: Normal affect/mood Course Course Emergency Course: Discussed with patient he is on atorvastatin which she has been on for sometimes he denies any new exercise routine he denies any regular alcohol use Discussed with Dr. Paniagua who accepts admission Discussed with patient and family results of workup and diagnosis. Discussed need for admission. Patient and family understand and agree to current treatment plan Vital Signs Vital signs: Vital Signs Temperature 98.3 F 01/14/22 12:06 Pulse Rate 95 01/14/22 12:06 Respiratory Rate 16 01/14/22 12:06 Blood Pressure 162/121 H 01/14/22 12:06 Pulse Oximetry 98 01/14/22 12:06 Temperature 98.3 F 01/14/22 12:06 Pulse Rate 93 01/14/22 12:36
[2022-01-14 12:25] LABS: Basophils Percent Auto 0.5 % (0.2-1.2); Eosinophils Absolute Auto 0.2 K/mm3 (0-0.3); Eosinophils Percent Auto 1.8 % (0-4.4); Hemoglobin 15.8 g/dL (14.0-18.0); Immature Granulocyte Absolute 0.03 K/mm3 (0.00-0.031); Immature Granulocyte Percent A 0.4 % (0-0.5); Lymphocytes Absolute Auto 1.92 K/mm3 (0.9-3.2); Lymphocytes Percent Auto 22.8 % (18.3-44.2); Mean Corpuscular HGB Conc 33.6 g/dl (32-36); Mean Corpuscular Volume 89.4 fl (80-100); Mean Platelet Volume 10.3 fl (7.4-10.4); Monocytes Absolute Auto 0.4 K/mm3 (0.1-0.6); Monocytes Percent Auto 4.3 % (2.6-8.5); Neutrophils Absolute Auto 5.9 K/mm3 (1.3-6.7); Neutrophils Percent Auto 70.2 % (45.5-73.1); Platelet Count Result 294 k/mm3 (150-375); Red Blood Count 5.26 M/mm3 (4.6-6.20); Red Cell Distribution Width 13.5 % (11.5-14.5); White Blood Count 8.4 K/mm3 (4.5-10.0)
[2022-01-14 12:37] LABS: Prothrombin Time 12.6 Seconds (11.1-14.7)
[2022-01-14 12:38] LABS: Partial Thromboplastin Time 31.3 SECONDS (22.3-36.8)
[2022-01-14 13:14] LABS: Creatine Kinase > 16000 U/L (55-170)
[2022-01-14] MEDS: SODIUM CHLORIDE 0.9% IV 1,000 ML 999 ML IV CONT ×2 (13:18→14:41)
[2022-01-14 13:32] LABS: Alanine Aminotransferase 525 U/L (6-50); Albumin Level 3.8 g/dL (3.5-5.1); Alkaline Phosphatase 99 U/L (38-126); Anion Gap 9 mmol/L (8-16); Aspartate Amino Transferase 544 U/L (17-59); Bilirubin,Total 1.2 mg/dL (0.2-1.3); Blood Urea Nitrogen 15 mg/dL (9-20); Calcium 8.7 mg/dL (8.4-10.2); Carbon Dioxide 22 mmol/L (22-30); Chloride 107 mmol/L (98-107); Estimated CRCL calculation 133 ml/min; Estimated Glomerular Filt Rate > 60; Glucose 151 mg/dL (65-110); Potassium 4.1 mmol/L (3.4-5.0); Sodium 138 mmol/L (137-145)
[2022-01-14 13:46] LABS: Troponin I < 0.012 ng/mL (0.000-0.034)
[2022-01-14 14:04] LABS: Appearance Urine Slightly Cloudy (Clear); Bilirubin Urine 1+ (Negative); Blood Urine 3+ (Negative); Color Urine Yellow (Yellow); Glucose Urine UA Negative (Negative); Ketones Urine Negative (Negative); Leukocyte Esterase Ur Negative LEU/UL (Negative); Nitrate Urine Negative (Negative); Protein Urine 2+ mg/dL (Negative); Specific Grav Ur >= 1.030 (1.001-1.035); pH Urine 5.5 (5.0-9.0)
[2022-01-14 14:13] LABS: Amorphous Sediment Urine Few; Mucus Urine Rare /lpf; Squamous Epithelial Cell Urine Rare /hpf (Few); WBC Urine 0-3 /hpf
[2022-01-14 14:17] LABS: Add Urine Microscopic? YES
[2022-01-14 15:06] LABS: Lipase 28 U/L (23-300)
--- NOTE | 2022-01-14 16:44 | PM.IMHP ---
H&P: HPI History of Present Illness Date/Time: 01/14/22 16:44 Chief Complaint: Weakness Narrative: 46-year-old male with past medical history significant for obesity, heart disease, hypertension, hyperlipidemia, former smoker presenting with progressively worsening weakness, abdominal pain, nausea and vomiting over the last 2 weeks. Notes that his legs got so weak he actually fell today, and that is why he came to the ER. In the ER, he was found to have rhabdomyolysis with elevated LFTs. He was started on aggressive IV fluid hydration admitted for further treatment. He denied chest pain or shortness of breath. No fevers or chills. No recent travel or sick contacts. He had an ME with a stent placement of his mid RCA in March of 2021 and is on dual antiplatelet therapy until March 2022. Review of Systems Review of Systems: Twelve point review of systems was reviewed and is negative except as noted in the HPI [facility] Past Medical History Medical History Obesity Unspecified place or not applicable Family History Family History Mother Hypertension Social History Social History Smoking packs per day: 1 Smoking cigarettes per day: 20.0 Years smoked: 26 Smoking pack-years: 26.00 Smoking status: Former smoker Tobacco type: cigarettes Smoking end date: 04/16/21 Alcohol intake: never Substance use: current Substance use type: marijuana Last use: 1 week ago Spiritual care concerns: No Meds Home Medications and Allergies Home Medications Medication Instructions Recorded Confirmed Type aspirin 81 mg tablet,delayed 81 mg PO QAM 30 days #30 tabs 04/18/21 01/14/22 Rx release ticagrelor 90 mg tablet (Brilinta) 90 mg PO Q12HR #90 tabs 09/25/21 01/14/22 Rx carvedilol 12.5 mg tablet (Coreg) 12.5 mg PO Q12HR 90 days #180 tabs 11/05/21 01/14/22 Rx losartan 25 mg tablet 25 mg PO DAILY #90 tabs 11/05/21 01/14/22 Rx atorvastatin 80 mg tablet 80 mg PO HS 90 days #90 tabs 11/10/21 01/14/22 Rx Allergies Allergy/AdvReac Type Severity Reaction Status Date / Time No Known Allergies Allergy Verified 09/25/21 13:50 Vital Signs Vital Signs - 24 hr 01/14/22 12:06 01/14/22 12:11 01/14/22 12:28 Temperature 98.3 F Pulse Rate 95 82 Respiratory Rate 16 Blood Pressure 162/121 H Pulse Oximetry 98 98 01/14/22 12:30 01/14/22 12:32 01/14/22 12:36 Temperature Pulse Rate 93 Respiratory Rate 14 17 Blood Pressure 125/87 125/82 Pulse Oximetry 97 96 97 01/14/22 12:45 01/14/22 12:47 01/14/22 12:48 Temperature Pulse Rate Respiratory Rate 16 25 H 23 H Blood Pressure Pulse Oximetry 97 100 98 01/14/22 13:10 01/14/22 13:15 01/14/22 13:30 Temperature Pulse Rate 87 89 Respiratory Rate 12 20 14 Blood Pressure Pulse Oximetry 97 96 01/14/22 13:50 01/14/22 14:02 01/14/22 14:14 Temperature Pulse Rate 86 Respiratory Rate 13 12 Blood Pressure 116/90 Pulse Oximetry 01/14/22 14:15 01/14/22 14:17 01/14/22 15:40 Temperature Pulse Rate 86 Respiratory Rate 17 16 Blood Pressure 126/87 126/87 Pulse Oximetry 98 01/14/22 16:00 Temperature 97.7 F Pulse Rate 78 Respiratory Rate 16 Blood Pressure 133/76 Pulse Oximetry 98 Exam Narrative: General: Patient resting comfortably in bed, no acute distress HEENT: Atraumatic, normocephalic, mucous membranes moist CV: Regular rate and rhythm, S1, S2, no murmurs rubs or gallops noted Lungs: Clear to auscultation bilaterally, no rales or crackles noted, no wheezes, good air entry Abdomen: Soft, nontender, nondistended Extremities: Normal to inspection, no edema noted Skin: No rashes noted, no lesions or wounds seen Psych: Euthymic, normal affect Neuro: Cranial nerves 2-12 grossly intact, strength 5/5 upper and lo
[2022-01-14] MEDS: SODIUM CHLORIDE 0.9% IV 1,000 ML 150 ML IV CONT (16:58)
[2022-01-14] MEDS: carvediloL 12.5 MG TABLET PO (20:59)
[2022-01-14] MEDS: TICAGRELOR 90 MG TABLET PO (20:59)
[2022-01-15] MEDS: SODIUM CHLORIDE 0.9% IV 1,000 ML 150 ML IV CONT ×3 (04:08→18:37)
[2022-01-15 06:00] VITALS: BP 120/61; PULSE 81; RESP 16; TEMP 36.8; O2SAT 99
[2022-01-15 07:18] LABS: Basophils Percent Auto 0.4 % (0.2-1.2); Eosinophils Absolute Auto 0.2 K/mm3 (0-0.3); Eosinophils Percent Auto 2.4 % (0-4.4); Hematocrit 40.8 % (42.0-52.0); Hemoglobin 13.3 g/dL (14.0-18.0); Immature Granulocyte Absolute 0.03 K/mm3 (0.00-0.031); Immature Granulocyte Percent A 0.4 % (0-0.5); Lymphocytes Absolute Auto 2.11 K/mm3 (0.9-3.2); Lymphocytes Percent Auto 27.6 % (18.3-44.2); Mean Corpuscular HGB Conc 32.6 g/dl (32-36); Mean Corpuscular Hemoglobin 30.2 pg (26-34); Mean Corpuscular Volume 92.7 fl (80-100); Mean Platelet Volume 10.2 fl (7.4-10.4); Monocytes Absolute Auto 0.5 K/mm3 (0.1-0.6); Monocytes Percent Auto 6.5 % (2.6-8.5); Neutrophils Absolute Auto 4.8 K/mm3 (1.3-6.7); Neutrophils Percent Auto 62.7 % (45.5-73.1); Platelet Count Result 223 k/mm3 (150-375); Red Cell Distribution Width 13.5 % (11.5-14.5); White Blood Count 7.7 K/mm3 (4.5-10.0)
[2022-01-15 07:35] LABS: Alanine Aminotransferase 397 U/L (6-50); Alkaline Phosphatase 78 U/L (38-126); Anion Gap 4 mmol/L (8-16); Aspartate Amino Transferase 448 U/L (17-59); Bilirubin,Total 0.9 mg/dL (0.2-1.3); Blood Urea Nitrogen 12 mg/dL (9-20); Calcium 7.7 mg/dL (8.4-10.2); Carbon Dioxide 25 mmol/L (22-30); Chloride 109 mmol/L (98-107); Estimated CRCL calculation 152 ml/min; Estimated Glomerular Filt Rate > 60; Glucose 93 mg/dL (65-110); Potassium 3.4 mmol/L (3.4-5.0); Sodium 138 mmol/L (137-145)
[2022-01-15 08:00] VITALS: O2SAT 99
[2022-01-15 09:39] LABS: Creatine Kinase 14177 U/L (55-170)
[2022-01-15 09:46] VITALS: PULSE 79
[2022-01-15] MEDS: carvediloL 12.5 MG TABLET PO ×2 (09:46→20:59)
[2022-01-15] MEDS: LOSARTAN POTASSIUM 25 MG TABLET PO (09:46)
[2022-01-15] MEDS: ASPIRIN 81 MG ENTERIC TABLET PO (09:46)
[2022-01-15] MEDS: ENOXAPARIN 40 MG/0.4 ML SYRINGE SUB-Q (09:47)
[2022-01-15] MEDS: TICAGRELOR 90 MG TABLET PO ×2 (09:48→20:59)
[2022-01-15 14:00] VITALS: BP 126/84; PULSE 76; RESP 18; TEMP 36.3; O2SAT 99
[2022-01-15 15:49] LABS: Creatine Kinase 15229 U/L (55-170)
--- NOTE | 2022-01-15 17:47 | PM.IMPN ---
Progress Note: A&P Assessment and Plan (1) Rhabdomyolysis: Code(s): M62.82 - Rhabdomyolysis Status: Acute Assessment and Plan: Aggressive IV fluid hydration, discontinue statin (2) LFT elevation: Code(s): R79.89 - Other specified abnormal findings of blood chemistry Status: Acute Assessment and Plan: Suspect LFTs and rhabdomyolysis secondary to statin, discontinue (3) Elevated TSH: Code(s): R79.89 - Other specified abnormal findings of blood chemistry Status: Acute Assessment and Plan: Recheck pending (4) Obesity: Code(s): E66.9 - Obesity, unspecified Status: Acute Assessment and Plan: Recommend lifestyle modifications (5) Lumbar spondylosis: Code(s): M47.816 - Spondylosis without myelopathy or radiculopathy, lumbar region Status: Acute Assessment and Plan: Stable, monitor (6) Pericardial effusion: Code(s): I31.3 - Pericardial effusion (noninflammatory) Status: Acute Assessment and Plan: Last noted in March 2021, Cardiology consult pending Plan Patient had a stent March 2021, cardiology notified that statin needed to be discontinued, he can follow up outpatient with Cardiology Subjective Date/time seen: 01/15/22 17:47 Interval history: Patient resting comfortably without complaints. He states his muscle aches a little better than yesterday. He denies chest pain or shortness of breath. No nausea vomiting diarrhea. No fevers or chills. Review of Systems Review of Systems: Twelve point review of systems was reviewed and is negative except as noted in the HPI Exam Narrative: General: Patient resting comfortably in bed, no acute distress HEENT: Atraumatic, normocephalic, mucous membranes moist CV: Regular rate and rhythm, S1, S2, no murmurs rubs or gallops noted Lungs: Clear to auscultation bilaterally, no rales or crackles noted, no wheezes, good air entry Abdomen: Soft, nontender, nondistended Extremities: Normal to inspection, no edema noted Skin: No rashes noted, no lesions or wounds seen Psych: Euthymic, normal affect Neuro: Cranial nerves 2-12 grossly intact, strength 5/5 upper and lower extremities noted Objective Data Vital Signs Vital Signs: Vital Signs - 24 hr 01/14/22 20:59 01/14/22 21:28 01/15/22 06:00 Temperature 98.0 F 98.2 F Pulse Rate 78 74 81 Respiratory Rate 16 16 Blood Pressure 123/75 120/61 Pulse Oximetry 99 99 Oxygen Delivery 01/15/22 09:46 01/15/22 08:00 01/15/22 14:00 Temperature 97.3 F L Pulse Rate 79 76 Respiratory Rate 18 Blood Pressure 126/84 Pulse Oximetry 99 99 Oxygen Delivery Room Air Intake/Output Intake/Output: Intake & Output 01/12/22 01/13/22 01/14/22 01/15/22 23:59 23:59 23:59 23:59 Intake Total 3372 2860 Output Total 200 1450 Balance 3172 1410 Meds/Results Medications: Active Medications Generic Name Dose Route Start Last Admin Trade Name Freq PRN Reason Stop Dose Admin Aspirin 81 mg 01/15/22 09:00 01/15/22 09:46 Aspirin 81 Mg Enteric Tablet PO 81 mg QAM STEPHANY Administration Carvedilol 12.5 mg 01/14/22 21:00 01/15/22 09:46 Carvedilol 12.5 Mg Tablet PO 12.5 mg Q12HR STEPHANY Administration Enoxaparin Sodium 40 mg 01/15/22 09:00 01/15/22 09:47 Enoxaparin 40 Mg/0.4 Ml Syringe SUB-Q 40 mg DAILY STEPHANY Administration Sodium Chloride 1,000 mls @ 150 mls/hr 01/14/22 14:10 01/15/22 10:33 Normal Saline Iv IV CONT 150 mls/hr .Q6H40M STEPHANY Administration Losartan Potassium 25 mg 01/15/22 09:00 01/15/22 09:46 Losartan Potassium 25 Mg Tablet PO 25 mg DAILY STEPHANY Administration Ticagrelor 90 mg 01/14/22 21:00 01/15/22 09:48 Ticagrelor 90 Mg Tablet PO 90 mg Q12HR STEPHANY Administration Radiology Results: ITS Impressions Head CT 01/14/22 12:33 IMPRESSION: 1. No acute intracranial abnormality. Chest X-Ray 01/14/22
[2022-01-15 20:58] VITALS: BP 133/81; PULSE 75; RESP 16; TEMP 37; O2SAT 99
[2022-01-15 20:59] VITALS: PULSE 75
[2022-01-16] MEDS: SODIUM CHLORIDE 0.9% IV 1,000 ML 150 ML IV CONT ×3 (02:08→20:20)
[2022-01-16 06:00] VITALS: BP 122/74; PULSE 78; RESP 16; TEMP 36.3; O2SAT 97
[2022-01-16 08:00] VITALS: O2SAT 98
[2022-01-16 08:36] LABS: Creatine Kinase 12799 U/L (55-170)
[2022-01-16 08:53] LABS: Hematocrit 44.3 % (42.0-52.0); Hemoglobin 14.2 g/dL (14.0-18.0); Mean Corpuscular HGB Conc 32.1 g/dl (32-36); Mean Corpuscular Hemoglobin 29.6 pg (26-34); Mean Corpuscular Volume 92.3 fl (80-100); Mean Platelet Volume 10.2 fl (7.4-10.4); Platelet Count Result 249 k/mm3 (150-375); Red Cell Distribution Width 13.4 % (11.5-14.5); White Blood Count 7.1 K/mm3 (4.5-10.0)
[2022-01-16 08:58] VITALS: PULSE 84
[2022-01-16] MEDS: carvediloL 12.5 MG TABLET PO ×2 (08:58→20:23)
[2022-01-16] MEDS: TICAGRELOR 90 MG TABLET PO ×2 (08:58→20:23)
[2022-01-16] MEDS: ENOXAPARIN 40 MG/0.4 ML SYRINGE SUB-Q (08:59)
[2022-01-16] MEDS: ASPIRIN 81 MG ENTERIC TABLET PO (08:59)
[2022-01-16] MEDS: LOSARTAN POTASSIUM 25 MG TABLET PO (08:59)
[2022-01-16 09:04] LABS: Alanine Aminotransferase 453 U/L (6-50); Albumin Level 3.4 g/dL (3.5-5.1); Alkaline Phosphatase 81 U/L (38-126); Anion Gap 0 mmol/L (8-16); Aspartate Amino Transferase 456 U/L (17-59); Bilirubin,Total 0.6 mg/dL (0.2-1.3); Blood Urea Nitrogen 11 mg/dL (9-20); Carbon Dioxide 31 mmol/L (22-30); Chloride 107 mmol/L (98-107); Estimated CRCL calculation 134 ml/min; Estimated Glomerular Filt Rate > 60; Glucose 104 mg/dL (65-110); Sodium 138 mmol/L (137-145)
[2022-01-16 09:16] LABS: Troponin I < 0.012 ng/mL (0.000-0.034)
[2022-01-16 14:00] VITALS: BP 108/73; PULSE 78; RESP 20; TEMP 37.2; O2SAT 93
--- NOTE | 2022-01-16 16:41 | PM.IMPN ---
Progress Note: A&P Assessment and Plan (1) Rhabdomyolysis: Code(s): M62.82 - Rhabdomyolysis Status: Acute Assessment and Plan: Aggressive IV fluid hydration, discontinue statin (2) LFT elevation: Code(s): R79.89 - Other specified abnormal findings of blood chemistry Status: Acute Assessment and Plan: Suspect LFTs and rhabdomyolysis secondary to statin, discontinue, improving, goal of CK less than 5000 for discharge (3) Elevated TSH: Code(s): R79.89 - Other specified abnormal findings of blood chemistry Status: Acute Assessment and Plan: Recheck pending (4) Obesity: Code(s): E66.9 - Obesity, unspecified Status: Acute Assessment and Plan: Recommend lifestyle modifications (5) Lumbar spondylosis: Code(s): M47.816 - Spondylosis without myelopathy or radiculopathy, lumbar region Status: Acute Assessment and Plan: Stable, monitor (6) Pericardial effusion: Code(s): I31.3 - Pericardial effusion (noninflammatory) Status: Acute Assessment and Plan: Last noted in March 2021, Cardiology consult pending Plan Patient had a stent March 2021, cardiology notified that statin needed to be discontinued, he can follow up outpatient with Cardiology Subjective Date/time seen: 01/16/22 16:41 Interval history: Patient resting comfortably. No overnight events noted. No chest pain or shortness of breath. No nausea, vomiting or diarrhea. No fevers or chills. Review of Systems Review of Systems: 12 point review of systems was assessed and was negative except as noted in the HPI Exam Narrative: General: Patient resting comfortably in bed, no acute distress HEENT: Atraumatic, normocephalic, mucous membranes moist CV: Regular rate and rhythm, S1, S2, no murmurs rubs or gallops noted Lungs: Clear to auscultation bilaterally, no rales or crackles noted, no wheezes, good air entry Abdomen: Soft, nontender, nondistended Extremities: Normal to inspection, some nonpitting lymphedema noted bilaterally Skin: No rashes noted, no lesions or wounds seen Psych: Euthymic, normal affect Neuro: Cranial nerves 2-12 grossly intact, strength 5/5 upper and lower extremities noted Objective Data Vital Signs Vital Signs: Vital Signs - 24 hr 01/15/22 20:58 01/15/22 20:59 01/16/22 06:00 Temperature 98.6 F 97.3 F L Pulse Rate 75 75 78 Respiratory Rate 16 16 Blood Pressure 133/81 122/74 Pulse Oximetry 99 97 Oxygen Delivery 01/16/22 08:58 01/16/22 14:00 01/16/22 08:00 Temperature 99.0 F Pulse Rate 84 78 Respiratory Rate 20 Blood Pressure 108/73 Pulse Oximetry 93 98 Oxygen Delivery Room Air Intake/Output Intake/Output: Intake & Output 01/13/22 01/14/22 01/15/22 01/16/22 23:59 23:59 23:59 23:59 Intake Total 3372 3980 2630 Output Total 200 1450 300 Balance 3172 2530 2330 Meds/Results Medications: Active Medications Generic Name Dose Route Start Last Admin Trade Name Freq PRN Reason Stop Dose Admin Aspirin 81 mg 01/15/22 09:00 01/16/22 08:59 Aspirin 81 Mg Enteric Tablet PO 81 mg QAM STEPHANY Administration Carvedilol 12.5 mg 01/14/22 21:00 01/16/22 08:58 Carvedilol 12.5 Mg Tablet PO 12.5 mg Q12HR STEPHANY Administration Enoxaparin Sodium 40 mg 01/15/22 09:00 01/16/22 08:59 Enoxaparin 40 Mg/0.4 Ml Syringe SUB-Q 40 mg DAILY STEPHANY Administration Sodium Chloride 1,000 mls @ 150 mls/hr 01/14/22 14:10 01/16/22 09:48 Normal Saline Iv IV CONT 150 mls/hr .Q6H40M STEPHANY Administration Losartan Potassium 25 mg 01/15/22 09:00 01/16/22 08:59 Losartan Potassium 25 Mg Tablet PO 25 mg DAILY STEPHANY Administration Ticagrelor 90 mg 01/14/22 21:00 01/16/22 08:58 Ticagrelor 90 Mg Tablet PO 90 mg Q12HR STEPHANY Administration Radiology Results: ITS Impressions Head CT 01/14/22 12:33 IMPRESSION: 1. No acute intracranial abnormality.
[2022-01-16 20:23] VITALS: PULSE 74
[2022-01-16 21:47] VITALS: BP 136/91; PULSE 82; RESP 20; TEMP 36.3; O2SAT 98
[2022-01-17] MEDS: SODIUM CHLORIDE 0.9% IV 1,000 ML 150 ML IV CONT ×4 (03:10→20:42)
[2022-01-17 05:39] VITALS: BP 111/89; PULSE 70; RESP 18; TEMP 36.7; O2SAT 99
[2022-01-17 06:30] LABS: Hematocrit 39.7 % (42.0-52.0); Hemoglobin 12.9 g/dL (14.0-18.0); Mean Corpuscular HGB Conc 32.5 g/dl (32-36); Mean Corpuscular Volume 92.3 fl (80-100); Mean Platelet Volume 10.5 fl (7.4-10.4); Platelet Count Result 233 k/mm3 (150-375); Red Cell Distribution Width 13.4 % (11.5-14.5); White Blood Count 7.7 K/mm3 (4.5-10.0)
[2022-01-17 06:49] LABS: Alanine Aminotransferase 378 U/L (6-50); Albumin Level 2.9 g/dL (3.5-5.1); Alkaline Phosphatase 70 U/L (38-126); Anion Gap 2 mmol/L (8-16); Aspartate Amino Transferase 358 U/L (17-59); Bilirubin,Total 0.5 mg/dL (0.2-1.3); Blood Urea Nitrogen 12 mg/dL (9-20); Calcium 7.7 mg/dL (8.4-10.2); Carbon Dioxide 28 mmol/L (22-30); Chloride 106 mmol/L (98-107); Estimated CRCL calculation 152 ml/min; Estimated Glomerular Filt Rate > 60; Glucose 92 mg/dL (65-110); Potassium 3.6 mmol/L (3.4-5.0); Sodium 136 mmol/L (137-145)
[2022-01-17 07:28] LABS: Creatine Kinase 12831 U/L (55-170)
[2022-01-17] MEDS: ASPIRIN 81 MG ENTERIC TABLET PO (08:33)
[2022-01-17] MEDS: TICAGRELOR 90 MG TABLET PO ×2 (08:33→20:41)
[2022-01-17] MEDS: carvediloL 12.5 MG TABLET PO ×2 (08:33→20:41)
[2022-01-17] MEDS: LOSARTAN POTASSIUM 25 MG TABLET PO (08:34)
[2022-01-17] MEDS: ENOXAPARIN 40 MG/0.4 ML SYRINGE SUB-Q (08:36)
[2022-01-17 09:17] LABS: Prothrombin Time 13.2 Seconds (11.1-14.7)
--- NOTE | 2022-01-17 13:21 | PM.IMPN ---
Progress Note: A&P Assessment and Plan (1) Rhabdomyolysis: Code(s): M62.82 - Rhabdomyolysis Status: Acute Assessment and Plan: Aggressive IV fluid hydration, discontinue statin (2) LFT elevation: Code(s): R79.89 - Other specified abnormal findings of blood chemistry Status: Acute Assessment and Plan: Improving much slower than expected, will give a dose of lasix now, recheck BMP and CK this afternoon (3) Elevated TSH: Code(s): R79.89 - Other specified abnormal findings of blood chemistry Status: Acute Assessment and Plan: Recheck pending (4) Obesity: Code(s): E66.9 - Obesity, unspecified Status: Acute Assessment and Plan: Recommend lifestyle modifications (5) Lumbar spondylosis: Code(s): M47.816 - Spondylosis without myelopathy or radiculopathy, lumbar region Status: Acute Assessment and Plan: Stable, monitor (6) Pericardial effusion: Code(s): I31.3 - Pericardial effusion (noninflammatory) Status: Acute Assessment and Plan: Last noted in March 2021, Cardiology consult pending Plan Patient had a stent March 2021, cardiology notified that statin needed to be discontinued, he can follow up outpatient with Cardiology Subjective Date/time seen: 01/17/22 13:21 Interval history: No overnight events noted. No chest pain or shortness of breath. No nausea, vomiting or diarrhea. No fevers or chills. He denies any myalgias, muscle aches or pains. No numbness or tingling. Review of Systems Review of Systems: 12 point review of systems was assessed and was negative except as noted in the HPI Exam Narrative: General: No acute distress, alert and oriented per baseline HEENT: Atraumatic, normocephalic, mucous membranes moist CV: Regular rate and rhythm, S1, S2, no murmurs rubs or gallops noted Lungs: Clear to auscultation bilaterally, no rales or crackles noted, no wheezes, good air entry Abdomen: Soft, nontender, nondistended Extremities: Normal to inspection Skin: No rashes noted, no lesions or wounds seen Psych: Euthymic, normal affect Neuro: Cranial nerves 2-12 grossly intact, strength +5/5 upper and lower extremities bilaterally Objective Data Vital Signs Vital Signs: Vital Signs - 24 hr 01/16/22 14:00 01/16/22 20:23 01/16/22 21:47 Temperature 99.0 F 97.3 F L Pulse Rate 78 74 82 Respiratory Rate 20 20 Blood Pressure 108/73 136/91 H Pulse Oximetry 93 98 Oxygen Delivery 01/16/22 20:00 01/17/22 05:39 Temperature 98.1 F Pulse Rate 70 Respiratory Rate 18 Blood Pressure 111/89 Pulse Oximetry 99 Oxygen Delivery Room Air Intake/Output Intake/Output: Intake & Output 01/14/22 01/15/22 01/16/22 01/17/22 23:59 23:59 23:59 23:59 Intake Total 3372 3980 3750 2340 Output Total 200 1450 1200 1650 Balance 3172 2530 2550 690 Meds/Results Medications: Active Medications Generic Name Dose Route Start Last Admin Trade Name Freq PRN Reason Stop Dose Admin Aspirin 81 mg 01/15/22 09:00 01/17/22 08:33 Aspirin 81 Mg Enteric Tablet PO 81 mg QAM STEPHANY Administration Carvedilol 12.5 mg 01/14/22 21:00 01/17/22 08:33 Carvedilol 12.5 Mg Tablet PO 12.5 mg Q12HR STEPHANY Administration Enoxaparin Sodium 40 mg 01/15/22 09:00 01/17/22 08:36 Enoxaparin 40 Mg/0.4 Ml Syringe SUB-Q 40 mg DAILY STEPHANY Administration Sodium Chloride 1,000 mls @ 150 mls/hr 01/14/22 14:10 01/17/22 11:22 Normal Saline Iv IV CONT Not Given .Q6H40M [facility] Losartan Potassium 25 mg 01/15/22 09:00 01/17/22 08:34 Losartan Potassium 25 Mg Tablet PO 25 mg DAILY STEPHANY Administration Ticagrelor 90 mg 01/14/22 21:00 01/17/22 08:33 Ticagrelor 90 Mg Tablet PO 90 mg Q12HR STEPHANY Administration Radiology Results: ITS Impressions Head CT 01/14/22 12:33 IMPRESSION: 1. No acute intracranial abnormality. Chest X-Ray 01/14/22 12:40
[2022-01-17] MEDS: FUROSEMIDE INJ 40 MG/4 ML VIAL IV PUSH (13:52)
[2022-01-17 14:00] VITALS: BP 115/81; PULSE 73; RESP 18; TEMP 36; O2SAT 98
[2022-01-17 15:19] LABS: Creatine Kinase 15481 U/L (55-170)
[2022-01-17 15:45] LABS: CRP 0.7 mg/dL (<1.0)
[2022-01-17 20:41] VITALS: PULSE 82
[2022-01-17 22:00] VITALS: BP 124/64; PULSE 65; TEMP 36.4; O2SAT 97
[2022-01-18] MEDS: SODIUM CHLORIDE 0.9% IV 1,000 ML 150 ML IV CONT (03:25)
[2022-01-18 06:00] VITALS: BP 111/65; PULSE 71; RESP 18; TEMP 36.3; O2SAT 98
[2022-01-18 06:24] LABS: Hematocrit 41.4 % (42.0-52.0); Hemoglobin 13.9 g/dL (14.0-18.0); Mean Corpuscular HGB Conc 33.6 g/dl (32-36); Mean Corpuscular Hemoglobin 30.3 pg (26-34); Mean Corpuscular Volume 90.4 fl (80-100); Mean Platelet Volume 10.3 fl (7.4-10.4); Platelet Count Result 248 k/mm3 (150-375); Red Blood Count 4.58 M/mm3 (4.6-6.20); Red Cell Distribution Width 13.5 % (11.5-14.5)
[2022-01-18 06:38] LABS: Albumin Level 3.2 g/dL (3.5-5.1); Alkaline Phosphatase 75 U/L (38-126); Anion Gap 2 mmol/L (8-16); Aspartate Amino Transferase 340 U/L (17-59); Bilirubin,Total 0.6 mg/dL (0.2-1.3); Blood Urea Nitrogen 11 mg/dL (9-20); Calcium 8.1 mg/dL (8.4-10.2); Carbon Dioxide 28 mmol/L (22-30); Chloride 105 mmol/L (98-107); Estimated CRCL calculation 134 ml/min; Estimated Glomerular Filt Rate > 60; Glucose 94 mg/dL (65-110); Potassium 3.4 mmol/L (3.4-5.0); Sodium 135 mmol/L (137-145)
[2022-01-18 06:50] LABS: Alanine Aminotransferase 421 U/L (6-50)
[2022-01-18 07:16] LABS: Creatine Kinase 11109 U/L (55-170)
[2022-01-18 08:38] VITALS: PULSE 80; O2SAT 97
[2022-01-18] MEDS: carvediloL 12.5 MG TABLET PO ×2 (08:38→20:45)
[2022-01-18] MEDS: TICAGRELOR 90 MG TABLET PO ×2 (08:38→20:45)
[2022-01-18] MEDS: LOSARTAN POTASSIUM 25 MG TABLET PO (08:38)
[2022-01-18] MEDS: ASPIRIN 81 MG ENTERIC TABLET PO (08:38)
[2022-01-18] MEDS: ENOXAPARIN 40 MG/0.4 ML SYRINGE SUB-Q (08:41)
[2022-01-18] MEDS: FUROSEMIDE INJ 40 MG/4 ML VIAL IV PUSH (08:41)
[2022-01-18] MEDS: SODIUM CHLORIDE 0.9% IV 1,000 ML 200 ML IV CONT ×3 (08:50→18:44)
[2022-01-18 14:00] VITALS: BP 117/78; PULSE 86; RESP 16; TEMP 35.7; O2SAT 99
--- NOTE | 2022-01-18 15:06 | PM.IMPN ---
Progress Note: A&P Assessment and Plan (1) Rhabdomyolysis: Code(s): M62.82 - Rhabdomyolysis Status: Acute Assessment and Plan: Aggressive IV fluid hydration, discontinue statin, give another dose of Lasix today, reassess tomorrow, increase IV fluids today (2) LFT elevation: Code(s): R79.89 - Other specified abnormal findings of blood chemistry Status: Acute Assessment and Plan: Improving (3) Elevated TSH: Code(s): R79.89 - Other specified abnormal findings of blood chemistry Status: Acute Assessment and Plan: TSH significantly elevated at 17, will start on levothyroxine 50 mcg, recheck in 4-6 weeks, check T3 and T4 Check echo (4) Obesity: Code(s): E66.9 - Obesity, unspecified Status: Acute Assessment and Plan: Recommend lifestyle modifications (5) Lumbar spondylosis: Code(s): M47.816 - Spondylosis without myelopathy or radiculopathy, lumbar region Status: Acute Assessment and Plan: Stable, monitor (6) Pericardial effusion: Code(s): I31.3 - Pericardial effusion (noninflammatory) Status: Acute Assessment and Plan: Last noted in March 2021, Cardiology consult pending, echo pending Plan Patient had a stent March 2021, cardiology notified that statin needed to be discontinued, he can follow up outpatient with Cardiology Subjective Date/time seen: 01/18/22 15:06 Interval history: Patient lying down watching TV, no complaints. No overnight events noted. No chest pain or shortness of breath. No nausea, vomiting or diarrhea. No fevers or chills. Review of Systems Review of Systems: 12 point review of systems was assessed and was negative except as noted in the HPI Exam Narrative: General: No acute distress, alert and oriented per baseline HEENT: Atraumatic, normocephalic, mucous membranes moist CV: Regular rate and rhythm, S1, S2, no murmurs rubs or gallops noted Lungs: Clear to auscultation bilaterally, no rales or crackles noted, no wheezes, good air entry Abdomen: Soft, nontender, nondistended Extremities: Normal to inspection Skin: No rashes noted, no lesions or wounds seen Psych: Euthymic, normal affect Neuro: Cranial nerves 2-12 grossly intact, strength +5/5 upper and lower extremities bilaterally Objective Data Vital Signs Vital Signs: Vital Signs - 24 hr 01/17/22 20:41 01/17/22 20:00 01/17/22 22:00 Temperature 97.6 F Pulse Rate 82 65 Respiratory Rate Blood Pressure 124/64 Pulse Oximetry 97 Oxygen Delivery Room Air 01/18/22 06:00 01/18/22 08:38 01/18/22 08:38 Temperature 97.3 F L Pulse Rate 71 80 Respiratory Rate 18 Blood Pressure 111/65 Pulse Oximetry 98 97 Oxygen Delivery 01/18/22 14:00 Temperature 96.2 F L Pulse Rate 86 Respiratory Rate 16 Blood Pressure 117/78 Pulse Oximetry 99 Oxygen Delivery Intake/Output Intake/Output: Intake & Output 01/15/22 01/16/22 01/17/22 01/18/22 23:59 23:59 23:59 23:59 Intake Total 3980 3750 4820 3450 Output Total 1450 1200 6050 2400 Balance 2530 2550 -1230 1050 Meds/Results Medications: Active Medications Generic Name Dose Route Start Last Admin Trade Name Hernanq PRN Reason Stop Dose Admin Aspirin 81 mg 01/15/22 09:00 01/18/22 08:38 Aspirin 81 Mg Enteric Tablet PO 81 mg QAM STEPHANY Administration Carvedilol 12.5 mg 01/14/22 21:00 01/18/22 08:38 Carvedilol 12.5 Mg Tablet PO 12.5 mg Q12HR STEPHANY Administration Enoxaparin Sodium 40 mg 01/15/22 09:00 01/18/22 08:41 Enoxaparin 40 Mg/0.4 Ml Syringe SUB-Q 40 mg DAILY STEPHANY Administration Sodium Chloride 1,000 mls @ 200 mls/hr 01/14/22 14:10 01/18/22 13:46 Normal Saline Iv IV CONT 200 mls/hr .Q5H STEPHANY Administration Losartan Potassium 25 mg 01/15/22 09:00 01/18/22 08:38 Losartan Potassium 25 Mg Tablet PO 25 mg DAILY STEPHANY Administration Ticagrelor 90 mg 01/14/22 21:00 01/18/22
[2022-01-18 20:45] VITALS: PULSE 86
[2022-01-18 21:33] VITALS: BP 133/78; PULSE 72; RESP 16; TEMP 36.5; O2SAT 98
--- NOTE | 2022-01-19 | ECHO_ITS ---
Patient Info Name: Joseph Marie Age: 46 years : 1975 Gender: Male Ht: 70 in Wt: 267 lbs BSA: 2.50 m2 HR: 81 bpm BP: 125 / 84 mmHg Technical Quality: Fair Exam Date: 01/19/2022 12:12 PM Exam Location: [facility] Patient Status: Inpatient Admit Date: 01/14/2022 Staff Ordering Physician: Wanda Peraza DO Biomedical Equipment Tech: Paula Quesada RDCS Attending Provider: Linda Paniagua MD Referring Physician: Stu MARTINEZ; Exam Type: CA echo dop color flow w con Study Info Indications - ELEVATED TSH Complete two-dimensional, color flow and Doppler transthoracic echocardiogram is performed with contrast to opacify the left ventricle and to improve the deliniation of the left ventricle endocardial borders. Contrast/Agitated Saline Contrast/Ag. Saline: Definity Amount: 3.00 ml Administered By: Paula Quesada RDCS Existing IV Access: Yes IV Access Condition: patent with no signs of infiltration Summary 1. Left ventricular chamber dimension is normal. 2. Definity contrast administered improved wall motion interpretation. 3. Left ventricular systolic function is normal, estimated at 60-65%. 4. The left ventricular diastolic function is normal. 5. E/e' 9 is minimally elevated. 6. Global longitudinal strain is normal at -18.8%. 7. No pulmonary hypertension, estimated pulmonary arterial systolic pressure is 30 mmHg. 8. There is trivial pericardial effusion. Left Ventricle E/e' 9 is minimally elevated. Global longitudinal strain is normal at -18.8%. Definity contrast administered improved wall motion interpretation. Left ventricular chamber dimension is normal. Left ventricular systolic function is normal, estimated at 60-65%. The left ventricular diastolic function is normal. Right Ventricle Right ventricular systolic function is normal and with normal TAPSE 2.5 cm. Right ventricular chamber dimension is normal. Left Atria Left atrial chamber dimension is normal. Right Atria Right atrial chamber dimension is normal. Aortic Valve The aortic valve is trileaflet. There is no aortic valve stenosis. There is no aortic valve regurgitation. Pulmonic Valve There is no pulmonic regurgitation. Mitral Valve There is no mitral valve stenosis. There is no mitral valve regurgitation. Tricuspid Valve There is no tricuspid valve regurgitation. No pulmonary hypertension, estimated pulmonary arterial systolic pressure is 30 mmHg. Pericardium/Pleural There is trivial pericardial effusion. Inferior Vena Cava Normal inferior vena cava with >50% collapse upon inspiration consistent with normal right atrial pressure, 5 mmHg. Aorta The aortic root size at the sinus of Valsalva is normal. Left Ventricular Outflow Tract Name Value Normal LVOT 2D LVOT Diameter 2.13 cm LVOT Doppler LVOT Peak Gradient 4 mmHg LVOT Mean Gradient 3 mmHg LVOT VTI 23.57 cm LVOT VTI/AV VTI Ratio 1.10 LVOT Stroke Volume 83
[2022-01-19] MEDS: SODIUM CHLORIDE 0.9% IV 1,000 ML 200 ML IV CONT ×5 (01:14→20:11)
[2022-01-19 05:29] VITALS: BP 125/84; PULSE 70; RESP 18; TEMP 36.3; O2SAT 96
[2022-01-19] MEDS: LEVOTHYROXINE SODIUM 50 MCG TABLET PO (06:17)
[2022-01-19 06:23] LABS: Hematocrit 40.2 % (42.0-52.0); Hemoglobin 12.9 g/dL (14.0-18.0); Mean Corpuscular HGB Conc 32.1 g/dl (32-36); Mean Corpuscular Hemoglobin 29.7 pg (26-34); Mean Corpuscular Volume 92.6 fl (80-100); Platelet Count Result 235 k/mm3 (150-375); Red Blood Count 4.34 M/mm3 (4.6-6.20); Red Cell Distribution Width 13.4 % (11.5-14.5); White Blood Count 7.7 K/mm3 (4.5-10.0)
[2022-01-19 06:52] LABS: Alanine Aminotransferase 360 U/L (6-50); Albumin Level 2.8 g/dL (3.5-5.1); Alkaline Phosphatase 67 U/L (38-126); Anion Gap 3 mmol/L (8-16); Aspartate Amino Transferase 259 U/L (17-59); Bilirubin,Total 0.6 mg/dL (0.2-1.3); Blood Urea Nitrogen 11 mg/dL (9-20); Calcium 7.7 mg/dL (8.4-10.2); Carbon Dioxide 28 mmol/L (22-30); Chloride 107 mmol/L (98-107); Estimated CRCL calculation 152 ml/min; Estimated Glomerular Filt Rate > 60; Glucose 98 mg/dL (65-110); Potassium 3.5 mmol/L (3.4-5.0); Sodium 138 mmol/L (137-145)
[2022-01-19 08:41] VITALS: PULSE 78
[2022-01-19] MEDS: carvediloL 12.5 MG TABLET PO ×2 (08:41→20:09)
[2022-01-19] MEDS: TICAGRELOR 90 MG TABLET PO ×2 (08:41→20:11)
[2022-01-19] MEDS: ASPIRIN 81 MG ENTERIC TABLET PO (08:41)
[2022-01-19] MEDS: LOSARTAN POTASSIUM 25 MG TABLET PO (08:41)
[2022-01-19] MEDS: ENOXAPARIN 40 MG/0.4 ML SYRINGE SUB-Q (08:41)
[2022-01-19 09:00] LABS: Creatine Kinase 9428 U/L (55-170)
[2022-01-19] MEDS: PERFLUTREN LIPID MICROSPHERES 1.5 ML VIAL DILUTED TO 10 ML TOTAL VOLUME IV PUSH (12:20)
[2022-01-19 14:00] VITALS: BP 122/75; PULSE 75; RESP 18; TEMP 36.2; O2SAT 99
[2022-01-19] MEDS: FUROSEMIDE INJ 40 MG/4 ML VIAL IV PUSH (15:53)
--- NOTE | 2022-01-19 18:37 | PM.IMPN ---
Progress Note: A&P Assessment and Plan (1) Rhabdomyolysis: Code(s): M62.82 - Rhabdomyolysis Status: Acute Assessment and Plan: Improving slowly, given aggressive IV fluid resuscitation, statin discontinued on admission, daily dose of Lasix (2) LFT elevation: Code(s): R79.89 - Other specified abnormal findings of blood chemistry Status: Acute Assessment and Plan: Improving (3) Elevated TSH: Code(s): R79.89 - Other specified abnormal findings of blood chemistry Status: Acute Assessment and Plan: TSH significantly elevated at 17, will start on levothyroxine 50 mcg, recheck in 4-6 weeks, check T3 and T4 Check echo due to history of pericardial effusion, echo showed only trace effusion at this time, otherwise essentially within normal limits (4) Obesity: Code(s): E66.9 - Obesity, unspecified Status: Acute Assessment and Plan: Recommend lifestyle modifications (5) Lumbar spondylosis: Code(s): M47.816 - Spondylosis without myelopathy or radiculopathy, lumbar region Status: Acute Assessment and Plan: Stable, monitor (6) Pericardial effusion: Code(s): I31.3 - Pericardial effusion (noninflammatory) Status: Acute Assessment and Plan: Last noted in March 2021, echo showed trace effusion, non clinically significant Plan Patient had a stent March 2021, cardiology notified that statin needed to be discontinued, he can follow up outpatient with Cardiology Subjective Date/time seen: 01/19/22 18:37 Exam Narrative: General: No acute distress, alert and oriented per baseline HEENT: Atraumatic, normocephalic, mucous membranes moist CV: Regular rate and rhythm, S1, S2, no murmurs rubs or gallops noted Lungs: Clear to auscultation bilaterally, no rales or crackles noted, no wheezes, good air entry Abdomen: Soft, nontender, nondistended Extremities: Normal to inspection Skin: No rashes noted, no lesions or wounds seen Psych: Euthymic, normal affect Neuro: Cranial nerves 2-12 grossly intact, strength +5/5 upper and lower extremities bilaterally Objective Data Vital Signs Vital Signs: Vital Signs - 24 hr 01/18/22 20:45 01/18/22 21:33 01/19/22 05:29 Temperature 97.7 F 97.4 F L Pulse Rate 86 72 70 Respiratory Rate 16 18 Blood Pressure 133/78 125/84 Pulse Oximetry 98 96 Oxygen Delivery 01/19/22 08:41 01/19/22 09:30 01/19/22 14:00 Temperature 97.2 F L Pulse Rate 78 75 Respiratory Rate 18 Blood Pressure 122/75 Pulse Oximetry 99 Oxygen Delivery Room Air Intake/Output Intake/Output: Intake & Output 01/16/22 01/17/22 01/18/22 01/19/22 23:59 23:59 23:59 23:59 Intake Total 3750 4820 5672 4170 Output Total 1200 6050 2825 1999 Balance 2550 -1230 2844 2170 Meds/Results Medications: Active Medications Generic Name Dose Route Start Last Admin Trade Name Freq PRN Reason Stop Dose Admin Aspirin 81 mg 01/15/22 09:00 01/19/22 08:41 Aspirin 81 Mg Enteric Tablet PO 81 mg QAM STEPHANY Administration Carvedilol 12.5 mg 01/14/22 21:00 01/19/22 08:41 Carvedilol 12.5 Mg Tablet PO 12.5 mg Q12HR STEPHANY Administration Enoxaparin Sodium 40 mg 01/15/22 09:00 01/19/22 08:41 Enoxaparin 40 Mg/0.4 Ml Syringe SUB-Q 40 mg DAILY STEPHANY Administration Furosemide 40 mg 01/19/22 15:21 01/19/22 15:53 Furosemide Inj 40 Mg/4 Ml Vial IV PUSH 40 mg DAILY STEPHANY Administration Sodium Chloride 1,000 mls @ 200 mls/hr 01/14/22 14:10 01/19/22 15:12 Normal Saline Iv IV CONT 200 mls/hr .Q5H STEPHANY Administration Levothyroxine Sodium 50 mcg 01/19/22 06:30 01/19/22 06:17 Levothyroxine Sodium 50 Mcg Tablet PO 50 mcg DAILY@0630 STEPHANY Administration Losartan Potassium 25 mg 01/15/22 09:00 01/19/22 08:41 Losartan Potassium 25 Mg Tablet PO 25 mg DAILY STEPHANY Administration Ticagrelor 90 mg 01/14/22 21:00 01/19/22 08:41 Ticagrelor 90 Mg Ta
[2022-01-19 20:09] VITALS: PULSE 76
[2022-01-19 20:30] VITALS: PULSE 73; RESP 16; O2SAT 95
[2022-01-19 21:32] VITALS: BP 114/69; PULSE 73; RESP 16; TEMP 36.5; O2SAT 95
[2022-01-20] MEDS: SODIUM CHLORIDE 0.9% IV 1,000 ML 200 ML IV CONT ×5 (01:20→21:36)
[2022-01-20] MEDS: LEVOTHYROXINE SODIUM 50 MCG TABLET PO (05:52)
[2022-01-20 05:59] VITALS: BP 127/70; PULSE 64; RESP 16; TEMP 36.9; O2SAT 97
[2022-01-20 06:52] LABS: Hematocrit 40.2 % (42.0-52.0); Hemoglobin 13.1 g/dL (14.0-18.0); Mean Corpuscular HGB Conc 32.6 g/dl (32-36); Mean Corpuscular Hemoglobin 30.3 pg (26-34); Mean Corpuscular Volume 92.8 fl (80-100); Platelet Count Result 244 k/mm3 (150-375); Red Blood Count 4.33 M/mm3 (4.6-6.20); Red Cell Distribution Width 13.5 % (11.5-14.5); White Blood Count 7.4 K/mm3 (4.5-10.0)
[2022-01-20 07:12] LABS: Alanine Aminotransferase 371 U/L (6-50); Alkaline Phosphatase 67 U/L (38-126); Anion Gap 3 mmol/L (8-16); Aspartate Amino Transferase 281 U/L (17-59); Bilirubin,Total 0.6 mg/dL (0.2-1.3); Blood Urea Nitrogen 11 mg/dL (9-20); Calcium 7.7 mg/dL (8.4-10.2); Carbon Dioxide 30 mmol/L (22-30); Chloride 106 mmol/L (98-107); Estimated CRCL calculation 134 ml/min; Estimated Glomerular Filt Rate > 60; Glucose 95 mg/dL (65-110); Potassium 3.1 mmol/L (3.4-5.0); Sodium 139 mmol/L (137-145)
[2022-01-20 07:38] LABS: Creatine Kinase 10042 U/L (55-170)
[2022-01-20] MEDS: TICAGRELOR 90 MG TABLET PO ×2 (08:17→21:32)
[2022-01-20] MEDS: ENOXAPARIN 40 MG/0.4 ML SYRINGE SUB-Q (08:17)
[2022-01-20] MEDS: FUROSEMIDE INJ 40 MG/4 ML VIAL IV PUSH ×3 (08:18→21:33)
[2022-01-20] MEDS: ASPIRIN 81 MG ENTERIC TABLET PO (08:18)
[2022-01-20 08:19] VITALS: PULSE 76
[2022-01-20] MEDS: carvediloL 12.5 MG TABLET PO ×2 (08:19→21:32)
[2022-01-20] MEDS: LOSARTAN POTASSIUM 25 MG TABLET PO (08:20)
--- NOTE | 2022-01-20 10:23 | PM.IMPN ---
Progress Note: A&P Assessment and Plan (1) Rhabdomyolysis: Code(s): M62.82 - Rhabdomyolysis Status: Acute Assessment and Plan: Improving slowly, given aggressive IV fluid resuscitation, statin discontinued on admission, daily dose of Lasix CK increased slightly today from yesterday, will increase Lasix to q.8 hours, maintain IV fluid resuscitation Compartment syndrome ruled out, all myalgias resolved, patient is completely asymptomatic Unsure of etiology of slow improvement (2) LFT elevation: Code(s): R79.89 - Other specified abnormal findings of blood chemistry Status: Acute Assessment and Plan: Improving (3) Elevated TSH: Code(s): R79.89 - Other specified abnormal findings of blood chemistry Status: Acute Assessment and Plan: TSH significantly elevated at 17, will start on levothyroxine 50 mcg, recheck in 4-6 weeks, check T3 and T4 Check echo due to history of pericardial effusion, echo showed only trace effusion at this time, otherwise essentially within normal limits (4) Obesity: Code(s): E66.9 - Obesity, unspecified Status: Acute Assessment and Plan: Recommend lifestyle modifications (5) Lumbar spondylosis: Code(s): M47.816 - Spondylosis without myelopathy or radiculopathy, lumbar region Status: Acute Assessment and Plan: Stable, monitor (6) Pericardial effusion: Code(s): I31.3 - Pericardial effusion (noninflammatory) Status: Acute Assessment and Plan: Last noted in March 2021, repeat echo this admission showed trace effusion, non clinically significant Plan Patient had a stent March 2021, cardiology notified that statin needed to be discontinued, he can follow up outpatient with Cardiology Subjective Date/time seen: 01/20/22 10:23 Interval history: Patient is sitting up eating barbecue food brought from his family. He states he has no myalgias and feels back to his baseline level of health. He is eager to go home. No overnight events noted. No chest pain or shortness of breath. No nausea, vomiting or diarrhea. No fevers or chills. Review of Systems Review of Systems: 12 point review of systems was assessed and was negative except as noted in the HPI Exam Narrative: General: No acute distress, alert and oriented per baseline HEENT: Atraumatic, normocephalic, mucous membranes moist CV: Regular rate and rhythm, S1, S2, no murmurs rubs or gallops noted Lungs: Clear to auscultation bilaterally, no rales or crackles noted, no wheezes, good air entry Abdomen: Soft, nontender, nondistended Extremities: Normal to inspection Skin: No rashes noted, no lesions or wounds seen Psych: Euthymic, normal affect Neuro: Cranial nerves 2-12 grossly intact, strength +5/5 upper and lower extremities bilaterally Objective Data Vital Signs Vital Signs: Vital Signs - 24 hr 01/19/22 14:00 01/19/22 20:09 01/19/22 21:32 Temperature 97.2 F L 97.7 F Pulse Rate 75 76 73 Respiratory Rate 18 16 Blood Pressure 122/75 114/69 Pulse Oximetry 99 95 Oxygen Delivery 01/19/22 20:30 01/20/22 05:59 01/20/22 08:19 Temperature 98.5 F Pulse Rate 73 64 76 Respiratory Rate 16 16 Blood Pressure 127/70 Pulse Oximetry 95 97 Oxygen Delivery Room Air Intake/Output Intake/Output: Intake & Output 01/17/22 01/18/22 01/19/22 01/20/22 23:59 23:59 23:59 23:59 Intake Total 4820 5672 5410 2750 Output Total 6050 2825 3600 1260 Balance -1230 2847 1810 1490 Meds/Results Medications: Active Medications Generic Name Dose Route Start Last Admin Trade Name Hernanq PRN Reason Stop Dose Admin Aspirin 81 mg 01/15/22 09:00 01/20/22 08:18 Aspirin 81 Mg Enteric Tablet PO 81 mg QAM [facility] Administration Carvedilol 12.5 mg 01/14/22 21:00 01/20/22 08:19 Carvedilol 12.5 Mg Tablet PO 12.5 mg Q12HR [facility] Administration Enoxaparin Sodium 40 mg 01/15/22 09:00 01/20/22 08:17
[2022-01-20 14:14] VITALS: BP 131/82; PULSE 83; RESP 16; TEMP 36.4; O2SAT 97
[2022-01-20 20:00] VITALS: PULSE 70; RESP 18; O2SAT 98
[2022-01-20 21:32] VITALS: PULSE 83
[2022-01-20 21:36] VITALS: BP 121/78; PULSE 70; RESP 18; TEMP 35.6; O2SAT 98
[2022-01-21] MEDS: SODIUM CHLORIDE 0.9% IV 1,000 ML 200 ML IV CONT ×5 (02:53→21:17)
[2022-01-21 05:49] VITALS: BP 101/64; PULSE 72; RESP 16; TEMP 36.3; O2SAT 96
[2022-01-21 06:28] LABS: Hematocrit 41.8 % (42.0-52.0); Hemoglobin 13.7 g/dL (14.0-18.0); Mean Corpuscular HGB Conc 32.8 g/dl (32-36); Mean Corpuscular Hemoglobin 30.3 pg (26-34); Mean Corpuscular Volume 92.5 fl (80-100); Platelet Count Result 261 k/mm3 (150-375); Red Blood Count 4.52 M/mm3 (4.6-6.20); Red Cell Distribution Width 13.7 % (11.5-14.5); White Blood Count 7.3 K/mm3 (4.5-10.0)
[2022-01-21] MEDS: FUROSEMIDE INJ 40 MG/4 ML VIAL IV PUSH ×3 (06:36→21:12)
[2022-01-21] MEDS: LEVOTHYROXINE SODIUM 50 MCG TABLET PO (06:36)
[2022-01-21 06:47] LABS: Alanine Aminotransferase 393 U/L (6-50); Albumin Level 3.2 g/dL (3.5-5.1); Alkaline Phosphatase 71 U/L (38-126); Anion Gap 3 mmol/L (8-16); Aspartate Amino Transferase 279 U/L (17-59); Bilirubin,Total 0.5 mg/dL (0.2-1.3); Blood Urea Nitrogen 15 mg/dL (9-20); Calcium 7.9 mg/dL (8.4-10.2); Carbon Dioxide 32 mmol/L (22-30); Chloride 102 mmol/L (98-107); Estimated CRCL calculation 134 ml/min; Estimated Glomerular Filt Rate > 60; Glucose 102 mg/dL (65-110); Potassium 3.4 mmol/L (3.4-5.0); Sodium 137 mmol/L (137-145)
[2022-01-21 07:15] LABS: Creatine Kinase 9240 U/L (55-170)
[2022-01-21 08:36] VITALS: BP 113/74
[2022-01-21 08:38] VITALS: PULSE 70
[2022-01-21] MEDS: ASPIRIN 81 MG ENTERIC TABLET PO (08:38)
[2022-01-21] MEDS: LOSARTAN POTASSIUM 25 MG TABLET PO (08:38)
[2022-01-21] MEDS: ENOXAPARIN 40 MG/0.4 ML SYRINGE SUB-Q (08:38)
[2022-01-21] MEDS: TICAGRELOR 90 MG TABLET PO ×2 (08:38→21:12)
[2022-01-21] MEDS: carvediloL 12.5 MG TABLET PO ×2 (08:38→21:12)
[2022-01-21 09:50] LABS: Appearance Urine Clear (Clear); Bilirubin Urine Negative (Negative); Blood Urine Trace-lysed (Negative); Color Urine Yellow (Yellow); Glucose Urine UA Negative (Negative); Ketones Urine Negative (Negative); Leukocyte Esterase Ur Negative LEU/UL (Negative); Nitrate Urine Negative (Negative); Protein Urine Negative (Negative); Urobilinogen Urine 0.2 mg/dL (<2.0)
[2022-01-21 10:09] LABS: Add Urine Microscopic? YES
--- NOTE | 2022-01-21 12:01 | PCNWS ---
Weekly nutritional screen. Patient is tolerating current diet, which is regular, with adequate intake at 75-100% of all meals. No weight loss reported. No nutritional needs at this time.
--- NOTE | 2022-01-21 13:05 | PM.IMPN ---
Progress Note: A&P Assessment and Plan (1) Rhabdomyolysis: Code(s): M62.82 - Rhabdomyolysis Status: Acute Assessment and Plan: Total CK greater than 16,000 on admission. Levels have been trending down slowly. He has been on aggressive IV hydration and fluid rate has been increased to 200 mL an hour. He has been on Lasix in this dose also was recently increased. Lipitor has been stopped. [place] rhabdomyolysis was statin induced. Total CK level trending downward slowly. Appears to be tolerating high-dose IV fluids. Urinalysis shows trace blood. Continue current treatment plan. (2) LFT elevation: Code(s): R79.89 - Other specified abnormal findings of blood chemistry Status: Acute Assessment and Plan: AST and ALT were elevated on admission with normal bilirubin alk-phos levels. AST and ALT levels trending downward overall in a stuttering fashion. Upper quadrant ultrasound shows increased liver echogenicity. May have fatty liver. He does have gallbladder wall thickening with an 8 mm gallbladder polyp. He will need follow up on the gallbladder polyp. Will check hepatitis panel. (3) Elevated TSH: Code(s): R79.89 - Other specified abnormal findings of blood chemistry Status: Acute Assessment and Plan: TSH was significantly elevated at 17 and he was started on levothyroxine 50 mcg. Plan to recheck TSH in 4-6 weeks (4) Obesity: Code(s): E66.9 - Obesity, unspecified Status: Acute Assessment and Plan: BMI 38. Recommend lifestyle modifications. (5) Pericardial effusion: Code(s): I31.3 - Pericardial effusion (noninflammatory) Status: Acute Assessment and Plan: Last noted in March 2021. Repeat echo showing 60-65%, normal diastolic fxn and only trace effusion at this time, otherwise essentially within normal limits. Resolved. (6) CAD (coronary artery disease): Code(s): I25.10 - Atherosclerotic heart disease of [place] coronary artery without angina pectoris Status: Acute Assessment and Plan: Patient had a stent placed in March 2021. Cardiology notified that statin needed to be discontinued. He can follow up outpatient with Cardiology Plan DVT prophylaxis: Lovenox Code status: Full Subjective Date/time seen: 01/21/22 13:05 Interval history: 46yo male with CAD, HTN and HLD here for muscle weakness and found to have rhabdomyolysis. Patient states he was on high-dose Lipitor since his myocardial infarction with stent placement March 2021. He has been having muscle pain for the past 3 weeks that worsened to the point where his legs gave out. He feels better today. He is avoiding extremely well. No complaints of chest pain. No myalgias but does state his legs feel stiff at times. Normal bowel movements. Exam Narrative: AF 97.4 113/74 70 16 96% ra Gen - NARD sitting up in chair Chest - CTA bilaterally, nml RR CV - RRR S1/S2 Abd - Soft, NT/ND, Positive BS Ext - No pedal edema Psych - Nml mood and affect Skin - Warm and dry Objective Data Vital Signs Vital Signs: Vital Signs - 24 hr 01/20/22 14:14 01/20/22 21:32 01/20/22 21:36 Temperature 97.6 F 96.0 F L Pulse Rate 83 83 70 Respiratory Rate 16 18 Blood Pressure 131/82 121/78 Pulse Oximetry 97 98 Oxygen Delivery 01/20/22 20:00 01/21/22 05:49 01/21/22 08:36 Temperature 97.4 F L Pulse Rate 70 72 Respiratory Rate 18 16 Blood Pressure 101/64 113/74 Pulse Oximetry 98 96 Oxygen Delivery Room Air 01/21/22 08:38 Temperature Pulse Rate 70 Respiratory Rate Blood Pressure Pulse Oximetry Oxygen Delivery Intake/Output Intake/Output: Intake & Output 01/18/22 01/19/22 01/20/22 01/21/22 23:59 23:59 23:59 23:59 Intake Total 5672 5410 7220 3700 Output Total 2825 3600 5560 5400 Balance 2847 1810 1660 -1700 Meds/Results Medications: Active Medications Generic Name Dose R
[2022-01-21] MEDS: POTASSIUM CHLORIDE 20 MEQ TABLET 40 MEQ PO (14:01)
[2022-01-21 14:05] VITALS: BP 112/70
[2022-01-21 21:12] VITALS: PULSE 70
[2022-01-21 21:48] VITALS: BP 126/81; PULSE 77; RESP 18; TEMP 36.8; O2SAT 98
[2022-01-22] MEDS: SODIUM CHLORIDE 0.9% IV 1,000 ML 200 ML IV CONT ×5 (04:42→22:50)
[2022-01-22 05:43] VITALS: BP 122/71; PULSE 70; RESP 18; TEMP 36.2; O2SAT 98
[2022-01-22] MEDS: FUROSEMIDE INJ 40 MG/4 ML VIAL IV PUSH ×3 (06:12→22:51)
[2022-01-22] MEDS: LEVOTHYROXINE SODIUM 50 MCG TABLET PO (06:12)
[2022-01-22 07:12] LABS: Hemoglobin 14.5 g/dL (14.0-18.0); Mean Corpuscular Hemoglobin 30.1 pg (26-34); Mean Corpuscular Volume 91.5 fl (80-100); Mean Platelet Volume 10.1 fl (7.4-10.4); Platelet Count Result 279 k/mm3 (150-375); Red Blood Count 4.81 M/mm3 (4.6-6.20); Red Cell Distribution Width 13.7 % (11.5-14.5); White Blood Count 7.6 K/mm3 (4.5-10.0)
[2022-01-22 07:27] LABS: Alanine Aminotransferase 406 U/L (6-50); Albumin Level 3.5 g/dL (3.5-5.1); Alkaline Phosphatase 73 U/L (38-126); Anion Gap 3 mmol/L (8-16); Aspartate Amino Transferase 258 U/L (17-59); Bilirubin,Total 0.7 mg/dL (0.2-1.3); Blood Urea Nitrogen 15 mg/dL (9-20); Calcium 8.2 mg/dL (8.4-10.2); Carbon Dioxide 33 mmol/L (22-30); Chloride 102 mmol/L (98-107); Estimated CRCL calculation 134 ml/min; Estimated Glomerular Filt Rate > 60; Glucose 108 mg/dL (65-110); Potassium 3.4 mmol/L (3.4-5.0); Sodium 138 mmol/L (137-145)
[2022-01-22 07:42] LABS: Creatine Kinase 7736 U/L (55-170)
[2022-01-22 08:10] LABS: Hepatitis B Surface Antigen Negative (Negative)
[2022-01-22 08:16] LABS: HAV RESULT Negative (Negative); Hepatitis B Core IgM Result Negative (Negative)
[2022-01-22 08:23] VITALS: PULSE 70
[2022-01-22] MEDS: ENOXAPARIN 40 MG/0.4 ML SYRINGE SUB-Q (08:23)
[2022-01-22] MEDS: ASPIRIN 81 MG ENTERIC TABLET PO (08:23)
[2022-01-22] MEDS: carvediloL 12.5 MG TABLET PO ×2 (08:23→20:28)
[2022-01-22] MEDS: LOSARTAN POTASSIUM 25 MG TABLET PO (08:23)
[2022-01-22] MEDS: TICAGRELOR 90 MG TABLET PO ×2 (08:23→20:28)
[2022-01-22 08:32] LABS: Hepatitis C Virus Antibody Reactive (Negative)
[2022-01-22 14:00] VITALS: BP 115/84; PULSE 85; RESP 18; TEMP 36.4; O2SAT 99
--- NOTE | 2022-01-22 14:03 | PM.IMPN ---
Progress Note: A&P Assessment and Plan (1) Rhabdomyolysis: Code(s): M62.82 - Rhabdomyolysis Status: Acute Assessment and Plan: Total CK was greater than 16,000 on admission. Levels have been trending down slowly. He has been on aggressive IV hydration and Lasix. Lipitor has been stopped. [place] rhabdomyolysis was statin induced. Total CK level trending downward to 7700. Appears to be tolerating high IV fluid rate. Urinalysis shows trace blood. Continue current treatment plan. Repeat UA tomorrow. (2) LFT elevation: Code(s): R79.89 - Other specified abnormal findings of blood chemistry Status: Acute Assessment and Plan: AST and ALT were elevated on admission with normal bilirubin alk-phos levels. AST and ALT levels trending downward overall in a stuttering fashion. Upper quadrant ultrasound shows increased liver echogenicity. May have fatty liver. He does have gallbladder wall thickening with an 8 mm gallbladder polyp. He will need follow up on the gallbladder polyp. Hepatitis panel is positive for hepatitis-C antibody. Hepatitis-C viral RNA levels pending. Follow-up on results. (3) Elevated TSH: Code(s): R79.89 - Other specified abnormal findings of blood chemistry Status: Acute Assessment and Plan: TSH was elevated at 17 and he was started on levothyroxine 50 mcg. Plan to recheck TSH in 4-6 weeks (4) Obesity: Code(s): E66.9 - Obesity, unspecified Status: Acute Assessment and Plan: BMI 38. Recommend lifestyle modifications. (5) Pericardial effusion: Code(s): I31.3 - Pericardial effusion (noninflammatory) Status: Acute Assessment and Plan: Last noted in March 2021. Repeat echo here showing 60-65%, normal diastolic fxn and only trace effusion at this time, otherwise essentially within normal limits. Resolved. (6) CAD (coronary artery disease): Code(s): I25.10 - Atherosclerotic heart disease of [place] coronary artery without angina pectoris Status: Acute Assessment and Plan: Patient had a stent placed in March 2021. Cardiology notified that statin needed to be discontinued. He can follow up outpatient with Cardiology. Continue ASA, Coreg and Brilinta. Plan DVT prophylaxis: Lovenox Code status: Full Subjective Date/time seen: 01/22/22 14:03 Interval history: 46yo male with CAD, HTN and HLD here for muscle weakness and found to have rhabdomyolysis. Feels ?great?. No abdominal pain. No nausea or vomiting. He did have loose stools off and on since admission. No melena or hematochezia. Exam Narrative: AF 97.2 122/71 70 18 98% ra Gen - NARD Chest - CTA bilaterally, nml RR CV - RRR S1/S2 Abd - Soft, NT/ND, Positive BS Ext - No pedal edema Psych - Nml mood and affect Skin - Warm and dry Objective Data Vital Signs Vital Signs: Vital Signs - 24 hr 01/21/22 14:05 01/21/22 21:12 01/21/22 21:48 Temperature 98.3 F Pulse Rate 70 77 Respiratory Rate 18 Blood Pressure 112/70 126/81 Pulse Oximetry 98 01/22/22 05:43 01/22/22 08:23 Temperature 97.2 F L Pulse Rate 70 70 Respiratory Rate 18 Blood Pressure 122/71 Pulse Oximetry 98 Intake/Output Intake/Output: Intake & Output 01/19/22 01/20/22 01/21/22 01/22/22 23:59 23:59 23:59 23:59 Intake Total 5410 7220 7920 3640 Output Total 3600 5560 7300 1800 Balance 1810 9036 434 6961 Meds/Results Medications: Active Medications Generic Name Dose Route Start Last Admin Trade Name Freq PRN Reason Stop Dose Admin Aspirin 81 mg 01/15/22 09:00 01/22/22 08:23 Aspirin 81 Mg Enteric Tablet PO 81 mg QAM STEPHNAY Administration Carvedilol 12.5 mg 01/14/22 21:00 01/22/22 08:23 Carvedilol 12.5 Mg Tablet PO 12.5 mg Q12HR STEPHANY Administration Enoxaparin Sodium 40 mg 01/15/22 09:00 01/22/22 08:23 Enoxaparin 40 Mg/0.4 Ml Syringe SUB-Q 40 mg DAILY [facility] Administratio
--- NOTE | 2022-01-22 14:39 | PCCCNOTE ---
On 01/22/22, the student, [Belen Allen], provided care and completed [facility] documentation on this patient. I have reviewed the student's documentation and agree with the findings.
[2022-01-22] MEDS: POTASSIUM CHLORIDE 20 MEQ TABLET 40 MEQ PO (14:50)
[2022-01-22 20:28] VITALS: PULSE 66
[2022-01-22 20:30] VITALS: PULSE 72; RESP 16; O2SAT 98
[2022-01-22 22:00] VITALS: BP 115/68; PULSE 72; RESP 16; TEMP 36.2; O2SAT 98
[2022-01-23] MEDS: SODIUM CHLORIDE 0.9% IV 1,000 ML 200 ML IV CONT ×3 (04:09→14:03)
[2022-01-23 06:00] VITALS: BP 108/71; PULSE 69; RESP 16; TEMP 36.2; O2SAT 98
[2022-01-23] MEDS: FUROSEMIDE INJ 40 MG/4 ML VIAL IV PUSH ×2 (06:11→14:04)
[2022-01-23] MEDS: LEVOTHYROXINE SODIUM 50 MCG TABLET PO (06:11)
[2022-01-23 07:53] LABS: Alanine Aminotransferase 356 U/L (6-50); Albumin Level 3.4 g/dL (3.5-5.1); Alkaline Phosphatase 68 U/L (38-126); Anion Gap 4 mmol/L (8-16); Aspartate Amino Transferase 235 U/L (17-59); Bilirubin,Total 0.7 mg/dL (0.2-1.3); Blood Urea Nitrogen 15 mg/dL (9-20); Calcium 8.2 mg/dL (8.4-10.2); Carbon Dioxide 29 mmol/L (22-30); Chloride 104 mmol/L (98-107); Estimated CRCL calculation 134 ml/min; Estimated Glomerular Filt Rate > 60; Glucose 102 mg/dL (65-110); Potassium 3.6 mmol/L (3.4-5.0); Sodium 137 mmol/L (137-145)
[2022-01-23 08:18] LABS: Creatine Kinase 6737 U/L (55-170)
[2022-01-23 09:08] VITALS: PULSE 69
[2022-01-23] MEDS: carvediloL 12.5 MG TABLET PO ×2 (09:08→21:03)
[2022-01-23] MEDS: ASPIRIN 81 MG ENTERIC TABLET PO (09:08)
[2022-01-23] MEDS: ENOXAPARIN 40 MG/0.4 ML SYRINGE SUB-Q (09:08)
[2022-01-23] MEDS: LOSARTAN POTASSIUM 25 MG TABLET PO (09:08)
[2022-01-23] MEDS: TICAGRELOR 90 MG TABLET PO ×2 (09:08→21:03)
[2022-01-23 13:52] VITALS: BP 118/73; PULSE 88; RESP 18; TEMP 36.2; O2SAT 98
--- NOTE | 2022-01-23 15:24 | PM.IMPN ---
Progress Note: A&P Assessment and Plan (1) Rhabdomyolysis: Code(s): M62.82 - Rhabdomyolysis Status: Acute Assessment and Plan: Total CK was greater than 16,000 on admission. Levels initially were up and down but more recently have been trending down slowly. He has been on aggressive IV hydration and Lasix. Lipitor has been stopped. [place] rhabdomyolysis was statin induced. Total CK level trending downward to 6700. Appears to be tolerating high IV fluid rate. Spoke with nephrology who recommended stopping Lasix and decrease IV fluid rate. If able to void normally and TCK continues to trend down, then okay to discharge. Check UA. (2) LFT elevation: Code(s): R79.89 - Other specified abnormal findings of blood chemistry Status: Acute Assessment and Plan: AST and ALT were elevated on admission with normal bilirubin alk-phos levels. AST and ALT levels trending downward overall in a stuttering fashion. Upper quadrant ultrasound shows increased liver echogenicity. May have fatty liver. He does have gallbladder wall thickening with an 8 mm gallbladder polyp. He will need follow up on the gallbladder polyp. Hepatitis panel is positive for hepatitis-C antibody. Hepatitis-C viral RNA levels pending. Follow-up on results. Results wee discussed with patient (3) Elevated TSH: Code(s): R79.89 - Other specified abnormal findings of blood chemistry Status: Acute Assessment and Plan: TSH was elevated at 17 and he was started on levothyroxine 50 mcg. Plan to recheck TSH in 4-6 weeks (4) Obesity: Code(s): E66.9 - Obesity, unspecified Status: Acute Assessment and Plan: BMI 38. Recommend lifestyle modifications. (5) Pericardial effusion: Code(s): I31.3 - Pericardial effusion (noninflammatory) Status: Acute Assessment and Plan: Last noted in March 2021. Repeat echo here showing 60-65%, normal diastolic fxn and only trace effusion at this time, otherwise essentially within normal limits. Resolved. (6) CAD (coronary artery disease): Code(s): I25.10 - Atherosclerotic heart disease of [place] coronary artery without angina pectoris Status: Acute Assessment and Plan: Patient had a stent placed in March 2021. Cardiology notified that statin needed to be discontinued. He can follow up outpatient with Cardiology. Continue ASA, Coreg and Brilinta. Plan DVT prophylaxis: Lovenox Code status: Full Subjective Date/time seen: 01/23/22 15:24 Interval history: 46yo male with CAD, HTN and HLD here for muscle weakness and found to have rhabdomyolysis. No issues overnight. He feels well today. Voiding excessive amounts. No chest pain. No myalgias. Exam Narrative: AF 97.2 118/73 88 18 98% ra Gen - NARD Chest - CTA bilaterally, nml RR CV - RRR S1/S2 Abd - Soft, NT/ND, Positive BS Ext - No pedal edema Psych - Nml mood and affect Skin - Warm and dry Objective Data Vital Signs Vital Signs: Vital Signs - 24 hr 01/22/22 20:28 01/22/22 22:00 01/22/22 20:30 Temperature 97.2 F L Pulse Rate 66 72 72 Respiratory Rate 16 16 Blood Pressure 115/68 Pulse Oximetry 98 98 Oxygen Delivery Room Air 01/23/22 06:00 01/23/22 09:08 01/23/22 13:52 Temperature 97.2 F L 97.2 F L Pulse Rate 69 69 88 Respiratory Rate 16 18 Blood Pressure 108/71 118/73 Pulse Oximetry 98 98 Oxygen Delivery Intake/Output Intake/Output: Intake & Output 01/20/22 01/21/22 01/22/22 01/23/22 23:59 23:59 23:59 23:59 Intake Total 7220 7920 6710 5412 Output Total 5560 7300 5000 3600 Balance 4213 100 4994 1812 Meds/Results Medications: Active Medications Generic Name Dose Route Start Last Admin Trade Name Josr PRN Reason Stop Dose Admin Aspirin 81 mg 01/15/22 09:00 01/23/22 09:08 Aspirin 81 Mg Enteric Tablet PO 81 mg QAM STEPHANY Administration Carvedilol 12.5 mg 01/14/22 21:00 0
--- NOTE | 2022-01-23 15:35 | PCCCNOTE ---
On 01/23/22, the student, [Belen Allen], provided care and completed [facility] documentation on this patient. I have reviewed the student's documentation and agree with the findings.
[2022-01-23 16:12] LABS: Appearance Urine Clear (Clear); Bilirubin Urine Negative (Negative); Color Urine Yellow (Yellow); Glucose Urine UA Negative (Negative); Ketones Urine Negative (Negative); Leukocyte Esterase Ur Negative LEU/UL (NEGATIVE); Nitrate Urine Negative (Negative); Protein Urine Negative (Negative); Specific Grav Ur 1.015 (1.001-1.035)
[2022-01-23 16:16] LABS: Squamous Epithelial Cell Urine Rare /hpf (Few); WBC Urine 0-3 /hpf (0-3)
[2022-01-23 16:21] LABS: Add Urine Microscopic? YES; Blood Urine Trace-Intact (Negative)
[2022-01-23] MEDS: SODIUM CHLORIDE 0.9% IV 1,000 ML 150 ML IV CONT (21:05)
[2022-01-23 21:58] VITALS: BP 113/67; PULSE 65; RESP 16; TEMP 36.4; O2SAT 97
[2022-01-24] MEDS: SODIUM CHLORIDE 0.9% IV 1,000 ML 150 ML IV CONT ×2 (03:57→10:56)
[2022-01-24 06:00] VITALS: BP 118/74; PULSE 69; RESP 16; TEMP 36.1; O2SAT 97
[2022-01-24 06:22] LABS: Alanine Aminotransferase 307 U/L (6-50); Albumin Level 3.3 g/dL (3.5-5.1); Alkaline Phosphatase 68 U/L (38-126); Anion Gap 3 mmol/L (8-16); Aspartate Amino Transferase 185 U/L (17-59); Bilirubin,Total 0.7 mg/dL (0.2-1.3); Blood Urea Nitrogen 16 mg/dL (9-20); Calcium 8.1 mg/dL (8.4-10.2); Carbon Dioxide 32 mmol/L (22-30); Chloride 102 mmol/L (98-107); Estimated CRCL calculation 134 ml/min; Estimated Glomerular Filt Rate > 60; Glucose 99 mg/dL (65-110); Potassium 3.6 mmol/L (3.4-5.0); Sodium 137 mmol/L (137-145)
[2022-01-24 06:37] LABS: Creatine Kinase 5927 U/L (55-170)
[2022-01-24] MEDS: LEVOTHYROXINE SODIUM 50 MCG TABLET PO (06:44)
[2022-01-24] MEDS: ENOXAPARIN 40 MG/0.4 ML SYRINGE SUB-Q (08:17)
[2022-01-24] MEDS: LOSARTAN POTASSIUM 25 MG TABLET PO (08:17)
[2022-01-24] MEDS: carvediloL 12.5 MG TABLET PO (08:17)
[2022-01-24] MEDS: ASPIRIN 81 MG ENTERIC TABLET PO (08:17)
[2022-01-24] MEDS: TICAGRELOR 90 MG TABLET PO (08:17)
--- NOTE | 2022-01-24 13:34 | PM.DS ---
DS: Admitting Diagnosis Discharge Date 01/24/22 Admitting Diagnosis Weakness DS: Discharge Diagnosis Discharge Diagnosis (1) Rhabdomyolysis: Code(s): M62.82 - Rhabdomyolysis Status: Acute Assessment and Plan: Total CK was greater than 16,000 on admission. Levels initially were up and down but more recently have been trending down more consistently. He was on aggressive IV hydration (but not alkalized) and Lasix. Lipitor was stopped and he was advised strongly to never take this medication again. [place] rhabdomyolysis was statin induced. Patient has remained asymptomatic for the past 3-4 days. He is ambulating without muscle aches. Total CK level trended downward to 5900. Spoke with nephrology who provided recommendations. We stopped Lasix and decreased IV fluid rate and patient's CK level trended down and he was voiding normally. UA yesterday showing trace-intact blood. Will discharge home and he was strongly encouraged to drink plenty of water to ensure urine was a very light yellow. Advised not to do any exertion. Mild ambulation okay. (2) LFT elevation: Code(s): R79.89 - Other specified abnormal findings of blood chemistry Status: Acute Assessment and Plan: AST and ALT were elevated on admission with normal bilirubin alk-phos levels. AST and ALT levels trending downward overall in a stuttering fashion. Upper quadrant ultrasound shows increased liver echogenicity. May have fatty liver. He does have gallbladder wall thickening with an 8 mm gallbladder polyp. He will need follow up on the gallbladder polyp in 1 year. Hepatitis panel was positive for hepatitis-C antibody. Hepatitis-C viral RNA levels pending. [place] elevated LFTs related to the rhabdomyolysis and/or HepC and/or fatty liver. Results were discussed with patient. Repeat LFTs as an outpatient. (3) Elevated TSH: Code(s): R79.89 - Other specified abnormal findings of blood chemistry Status: Acute Assessment and Plan: TSH was elevated at 17 and he was started on levothyroxine 50 mcg. Plan to recheck TSH in 4-6 weeks (4) Obesity: Code(s): E66.9 - Obesity, unspecified Status: Acute Assessment and Plan: BMI 38. Recommend lifestyle modifications. This was discussed in detail at time of discharge. (5) Pericardial effusion: Code(s): I31.3 - Pericardial effusion (noninflammatory) Status: Acute Assessment and Plan: Last noted in March 2021. Repeat echo here showing 60-65%, normal diastolic fxn and only trace effusion at this time, otherwise essentially within normal limits. Resolved. (6) CAD (coronary artery disease): Code(s): I25.10 - Atherosclerotic heart disease of [place] coronary artery without angina pectoris Status: Acute Assessment and Plan: Patient had a stent placed in March 2021. Cardiology notified that statin was discontinued. He can follow up outpatient with Cardiology. We continued ASA, Coreg and Brilinta. DS: Summary Hospital Course Reason for hospitalization: 46yo male with CAD, HTN and HLD here for muscle weakness and found to have rhabdomyolysis. Please see H&P for details. Hospital Course: Please see above for details of hospital course. Status at Discharge Cognitive/behavioral status at discharge: Stable Time Spent with Patient Time attestation: Total time spent providing and/or coordinating discharge services: 35 minutes Time spent: Greater than 30 minutes Exam Narrative: AF 96.9 118/74 69 16 97% ra Gen - NARD Chest - CTA bilaterally, nml RR CV - RRR S1/S2 Abd - Soft, NT/ND, Positive BS Ext - No pedal edema Psych - Nml mood and affect Skin - Warm and dry DS: Data Data Completed and Pending Labs on day of discharge: Labs from last 24 hours 01/24/22 01/23/22 05:36 15:56 Sodium 137 Potassium 3.6 Chloride 102 Carbon Dioxide 32 H Anion Gap 3 L BUN 16 Cre
[2022-01-24 14:00] VITALS: BP 130/94; PULSE 88; RESP 18; TEMP 36.2; O2SAT 98
[2022-01-25 16:22] LABS: Hepatitis C RNA, Quant PCR <15 IU/mL
--- NOTE | 2022-02-10 10:15 | PC.NURSE ---
HDp C Viral- <1.18 log iu/ml (WNL). Dr. Mayank koch.
== END 2022-01-24 15:06 | disposition home or self-care (01) | DRG 351 ==
LOC: ANHED 14:30 → ANH3MEDSUR 01-15 09:45
PROVIDERS: Student in an Organized Health Care Education/Training Program; Admitting Provider Family Medicine; Emergency Provider Emergency Medicine; PCP Internal Medicine; Visit Provider Internal Medicine
DX: M62.82 Rhabdomyolysis (principal); T46.6X5A Adverse effect of antihyperlipidemic and antiarteriosclerotic drugs, initial encounter; I31.3 Pericardial effusion (noninflammatory); I25.10 Atherosclerotic heart disease of native coronary artery without angina pectoris; M47.816 Spondylosis without myelopathy or radiculopathy, lumbar region; E78.5 Hyperlipidemia, unspecified; I10 Essential (primary) hypertension; E66.9 Obesity, unspecified; Z68.38 Body mass index [BMI] 38.0-38.9, adult; Z87.891 Personal history of nicotine dependence; Z95.5 Presence of coronary angioplasty implant and graft; I25.2 Old myocardial infarction
CPT/HCPCS: 36415; 70450; 71045; 72131; 76705; 80053; 80074; 81001; 82550; 83690; 84443; 84484; 85025; 85027; 85610; 85730; 86140; 87522; 93005; 96360; 96361; 99285; A9270; C8929; J1650; J1940; J7030; Q9957